=== PATIENT | male | born 1965 | race African-American/Black ===

== ENCOUNTER 2019-07-06 10:53 | Inpatient (IN) | payer OTHER ==
[2019-07-06 11:27] VITALS: BMI 21.8
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
[2019-07-06] MEDS ORDERED: MAGNESIUM HYDROX 2400MG/30ML ORAL SUSPENSION 30 ML CUP PO PRN (14:39)
[2019-07-06] MEDS ORDERED: METHOCARBAMOL 500 MG TABLET PO PRN (14:39)
[2019-07-06] MEDS ORDERED: MENTHOL/PHENOL 1 EACH UD MM PRN (14:39)
[2019-07-06] MEDS ORDERED: hydrOXYzine PAMOATE 25 MG CAPSULE (FP) PO PRN (14:39)
[2019-07-06] MEDS ORDERED: MAG HYDROX/AL HYDROX/SIMETH 30 ML UNIT-DOSE CUP PO PRN (14:39)
[2019-07-06] MEDS ORDERED: NICOTINE POLACRILEX 4 MG GUM BUC PRN (14:39)
[2019-07-06] MEDS ORDERED: MAGNESIUM CITRATE 300 ML BOTTLE PO PRN (14:39)
[2019-07-06] MEDS ORDERED: ACETAMINOPHEN 325 MG TABLET (FP) PO PRN ×2 (14:39)
[2019-07-06] MEDS ORDERED: BISMUTH SUBSALICYLATE 262 MG/15 ML BTL PO PRN (14:39)
[2019-07-06] MEDS ORDERED: IBUPROFEN 400 MG TABLET (FP) PO PRN (14:39)
[2019-07-06] MEDS: diazePAM 5 MG TABLET PO SCH ×2 (16:00→23:10)
[2019-07-06] MEDS: THIAMINE HCL 100 MG TABLET (FP) PO SCH (23:11)
[2019-07-07] MEDS: diazePAM 5 MG TABLET PO PRN ×2 (01:52→16:36)
[2019-07-07] MEDS: diazePAM 5 MG TABLET PO SCH ×3 (06:38→22:08)
[2019-07-07 10:16] LABS: HEMATOCRIT 42.5 % (35.4-49); HEMOGLOBIN 14.1 GM/dL (11.7-16.9); MCH 31.1 pg (25.7-33.7); MCHC 33.2 g/dl (32.0-35.9); MEAN CELL VOLUME 93.6 fl (80-96); MEAN PLT VOLUME 8.6 fl (7.5-11.1); PLATELET COUNT 267 K/MM3 (134-434); RBC 4.55 M/mm3 (4.00-5.60); WHITE BLOOD COUNT 7.5 K/mm3 (4.0-10.0)
[2019-07-07] MEDS ORDERED: cloNIDine HCL 0.1 MG TABLET PO PRN (10:18)
[2019-07-07] MEDS ORDERED: METHADONE HCL 10 MG TABLET (FOR DETOX USE ONLY) PO ONE (10:18)
--- NOTE | 2019-07-07 10:18 | PN ---
[facility] CIWA - CIWA Score Nausea/Vomitin-Mild Nausea/No Vomiting Muscle Tremors: 2 Anxiety: 2 Agitation: 2 Paroxysmal Sweats: No Perspiration Orientation: 0-Oriented Tacttile Disturbances: 1-Very Mild Itch/Numbness Auditory Disturbances: 0-None Visual Disturbances: 0-None Headache: 2-Mild CIWA-Ar Total Score: 10 BHS COWS - Scale Resting Pulse: 1= [place] 81-100 Sweatin= No chills or Flushing Restless Observation: 1= Difficult to Sit Still Pupil Size: 1= Pupils >than Normal Bone or Joint Aches: 1= Mild Discomfort Runny Nose/ Eye Tearin= Nasal Congestion GI Upset > 30mins: 1= Stomach Cramp Tremor Observation of Outstretched Hands: 2= Slight Tremor Visible Yawning Observation: 1= 1-2x During Session Anxiety or Irritability: 2=Irritable/Anxious Goose Flesh Skin: 0=Smooth Skin COWS Score: 11 S Progress Note (SOAP) Subjective: alert,irritable,anxious,interrupted sleep,pain in the body and back,tremor Objective: 07/07/19 10:16 Vital Signs Temperature 98.6 F 07/07/19 09:23 Pulse Rate 93 H 07/07/19 09:23 Respiratory Rate 18 07/07/19 09:23 Blood Pressure 127/93 07/07/19 09:23 O2 Sat by Pulse Oximetry (%) 07/07/19 10:17 labs pending Assessment: 07/07/19 10:17 withdrawal symptom Plan: change detox regimen to methadone and valium regimen
[2019-07-07] MEDS: PRENATAL VITAMINS W/ FOLIC ACID TABLET (FP) PO SCH (10:23)
[2019-07-07] MEDS: cloNIDine HCL 0.1 MG TABLET PO SCH ×2 (10:24→22:08)
[2019-07-07] MEDS: NICOTINE 21 MG/24 HOURS TOPICAL PATCH TD SCH (10:24)
[2019-07-07 10:29] LABS: ALBUMIN 2.9 g/dl (3.4-5.0); BILIRUBIN,TOTAL 0.6 mg/dL (0.2-1); BLOOD UREA NITROGEN 9.1 mg/dL (7-18); CALCIUM 8.9 mg/dL (8.5-10.1); CREATININE 1.1 mg/dL (0.55-1.3); TOT PROT 5.8 g/dl (6.4-8.2)
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
[2019-07-07] MEDS: THIAMINE HCL 100 MG TABLET (FP) PO SCH (22:07)
[2019-07-08] MEDS: diazePAM 5 MG TABLET PO SCH ×2 (05:37→17:16)
[2019-07-08] MEDS ORDERED: METHADONE HCL 5 MG TABLET (FOR DETOX USE ONLY) PO ONE (10:00)
[2019-07-08] MEDS: PRENATAL VITAMINS W/ FOLIC ACID TABLET (FP) PO SCH (10:57)
[2019-07-08] MEDS: cloNIDine HCL 0.1 MG TABLET PO SCH ×2 (10:57→21:46)
--- NOTE | 2019-07-08 10:57 | PN ---
[facility] CIWA - CIWA Score Nausea/Vomitin-No Nausea/No Vomiting Muscle Tremors: 2 Anxiety: 2 Agitation: 2 Paroxysmal Sweats: No Perspiration Orientation: 0-Oriented Tacttile Disturbances: 1-Very Mild Itch/Numbness Auditory Disturbances: 0-None Visual Disturbances: 0-None Headache: 1-Very Mild CIWA-Ar Total Score: 8 BHS COWS - Scale Resting Pulse: 0= [place] 80 or Below Sweatin= No chills or Flushing Restless Observation: 1= Difficult to Sit Still Pupil Size: 1= Pupils >than Normal Bone or Joint Aches: 1= Mild Discomfort Runny Nose/ Eye Tearin= Nasal Congestion GI Upset > 30mins: 1= Stomach Cramp Tremor Observation of Outstretched Hands: 1= Tremor [place], Not Seen Yawning Observation: 1= 1-2x During Session Anxiety or Irritability: 2=Irritable/Anxious Goose Flesh Skin: 0=Smooth Skin COWS Score: 9 [facility] Progress Note (SOAP) Subjective: alert,irritable,anxious,interrupted sleep,pain in the body,poor appetite Objective: 07/08/19 10:55 Vital Signs Temperature 98.2 F 07/08/19 06:13 Pulse Rate 73 07/08/19 06:13 Respiratory Rate 18 07/08/19 06:13 Blood Pressure 107/71 07/08/19 06:13 O2 Sat by Pulse Oximetry (%) 07/08/19 10:56 Laboratory Last Values WBC 7.5 K/mm3 (4.0-10.0) 07/07/19 08:15 RBC 4.55 M/mm3 (4.00-5.60) 07/07/19 08:15 Hgb 14.1 GM/dL (11.7-16.9) 07/07/19 08:15 Hct 42.5 % (35.4-49) 07/07/19 08:15 MCV 93.6 fl (80-96) 07/07/19 08:15 MCH 31.1 pg (25.7-33.7) 07/07/19 08:15 MCHC 33.2 g/dl (32.0-35.9) 07/07/19 08:15 RDW 15.0 % (11.9-15.9) 07/07/19 08:15 Plt Count 267 K/MM3 (134-434) 07/07/19 08:15 MPV 8.6 fl (7.5-11.1) 07/07/19 08:15 Sodium 137 mmol/L (136-145) 07/07/19 08:15 Potassium 4.0 mmol/L (3.5-5.1) 07/07/19 08:15 Chloride 103 mmol/L (98-107) 07/07/19 08:15 Carbon Dioxide 30 mmol/L (21-32) 07/07/19 08:15 Anion Gap 4 MMOL/L (8-16) L 07/07/19 08:15 BUN 9.1 mg/dL (7-18) 07/07/19 08:15 Creatinine 1.1 mg/dL (0.55-1.3) 07/07/19 08:15 Est GFR (CKD-EPI)AfAm 87.13 07/07/19 08:15 Est GFR (CKD-EPI)NonAf 75.17 07/07/19 08:15 Random Glucose 100 mg/dL (74-106) 07/07/19 08:15 Calcium 8.9 mg/dL (8.5-10.1) 07/07/19 08:15 Total Bilirubin 0.6 mg/dL (0.2-1) 07/07/19 08:15 AST 20 U/L (15-37) 07/07/19 08:15 ALT 24 U/L (13-61) 07/07/19 08:15 Alkaline Phosphatase 62 U/L (45-117) 07/07/19 08:15 Total Protein 5.8 g/dl (6.4-8.2) L 07/07/19 08:15 Albumin 2.9 g/dl (3.4-5.0) L 07/07/19 08:15 RPR Titer Nonreactive (NONREACTIVE) 07/07/19 08:15 Assessment: 07/08/19 10:56 withdrawal symptom Plan: continue detox methadone and valium regimen,ensure plus 120 mls po bid
[2019-07-08] MEDS: NICOTINE 21 MG/24 HOURS TOPICAL PATCH TD SCH (11:00)
[2019-07-08] MEDS: THIAMINE HCL 100 MG TABLET (FP) PO SCH (21:45)
[2019-07-08] MEDS: MELATONIN 5 MG TABLETS PO PRN (21:46)
[2019-07-08] MEDS: diazePAM 5 MG TABLET PO PRN (21:48)
[2019-07-09] MEDS ORDERED: diazePAM 5 MG TABLET PO ONE (06:00)
--- NOTE | 2019-07-09 09:53 | PN ---
[facility] CIWA - CIWA Score Nausea/Vomitin-No Nausea/No Vomiting Muscle Tremors: 1-None Visible, but [place] Anxiety: 1-Mildly Anxious Agitation: 1-Slight > Activity Paroxysmal Sweats: 1-Minimal [place] Moist Orientation: 0-Oriented Tacttile Disturbances: 0-None Auditory Disturbances: 0-None Visual Disturbances: 0-None Headache: 0-None Present CIWA-Ar Total Score: 4 BHS COWS - Scale Resting Pulse: 1= [place] 81-100 Sweatin= No chills or Flushing Restless Observation: 0= Sits Still Pupil Size: 0= Normal to Room Light Bone or Joint Aches: 1= Mild Discomfort Runny Nose/ Eye Tearin= None GI Upset > 30mins: 0= None Tremor Observation of Outstretched Hands: 1= Tremor [place], Not Seen Yawning Observation: 1= 1-2x During Session Anxiety or Irritability: 1=Feels Anxious/Irritable Goose Flesh Skin: 0=Smooth Skin COWS Score: 5 [facility] Progress Note (SOAP) Subjective: sweats chills anxiety Objective: 07/09/19 09:53 Vital Signs Temperature 97.9 F 07/09/19 09:32 Pulse Rate 84 07/09/19 09:32 Respiratory Rate 18 07/09/19 09:32 Blood Pressure 115/72 07/09/19 09:32 O2 Sat by Pulse Oximetry (%) aaox3 ambulating no acute distress Assessment: 07/09/19 09:58 mild withdrawals Plan: continue detox d/c in am
[2019-07-09] MEDS ORDERED: METHADONE HCL 10 MG TABLET (FOR DETOX USE ONLY) PO ONE (10:00)
[2019-07-09] MEDS: cloNIDine HCL 0.1 MG TABLET PO SCH ×2 (10:09→22:08)
[2019-07-09] MEDS: PRENATAL VITAMINS W/ FOLIC ACID TABLET (FP) PO SCH (10:09)
[2019-07-09] MEDS: NICOTINE 21 MG/24 HOURS TOPICAL PATCH TD SCH (10:11)
[2019-07-09] MEDS: diazePAM 5 MG TABLET PO PRN (12:23)
[2019-07-09] MEDS: THIAMINE HCL 100 MG TABLET (FP) PO SCH (22:09)
[2019-07-09] MEDS: MELATONIN 5 MG TABLETS PO PRN (22:10)
[2019-07-10] MEDS ORDERED: METHADONE HCL 5 MG TABLET (FOR DETOX USE ONLY) PO ONE (06:00)
[2019-07-10 09:25] VITALS: BP 114/63; PULSE 73; TEMP 97.7
[2019-07-10] MEDS: PRENATAL VITAMINS W/ FOLIC ACID TABLET (FP) PO SCH (10:13)
[2019-07-10] MEDS: NICOTINE 21 MG/24 HOURS TOPICAL PATCH TD SCH (10:13)
[2019-07-10] MEDS: cloNIDine HCL 0.1 MG TABLET PO SCH (10:13)
--- NOTE | 2019-07-10 17:53 | DS ---
[facility] Detox Discharge Summary Admission Date: 07/06/19 Discharge Date: 07/10/19 - History Present History: Alcohol Dependence, Cannabis Dependence, Cocaine Dependence, Opioid Dependence Additional Comments: PATIENT INITIALLY SCHEDULED TO GO TO [facility] [place] FOR AFTERCARE. HOWEVER, PATIENT CHANGED HIS MIND AT LAST MINUTE AND ELECTED TO LEAVE. PATIENT ADVISED TO CONSIDER LOCAL 12-STEP / NA / AA OUTPATIENT SUPPORT GROUP PROGRAMS FOR AFTERCARE. PATIENT VERBALIZED UNDERSTANDING OF RECOMMENDATION. PATIENT WAS DISCHARGED FROM DETOX UNIT IN STABLE MEDICAL CONDITION. Pertinent Past History: Nicotine Dependence, Schizoaffective Disorder, Bipolar Disorder. - Physical Exam Results Vital Signs: Vital Signs Temperature 97.7 F 07/10/19 09:24 Pulse Rate 73 07/10/19 09:24 Respiratory Rate 16 07/10/19 09:24 Blood Pressure 114/63 07/10/19 09:24 O2 Sat by Pulse Oximetry (%) Pertinent Admission Physical Exam Findings: WITHDRAWAL SYMPTOMS. Laboratory Tests 07/07/19 07/07/19 07/07/19 08:15 08:15 08:15 WBC 7.5 RBC 4.55 Hgb 14.1 Hct 42.5 MCV 93.6 MCH 31.1 MCHC 33.2 RDW 15.0 Plt Count 267 MPV 8.6 Sodium 137 Potassium 4.0 Chloride 103 Carbon Dioxide 30 Anion Gap 4 L BUN 9.1 Creatinine 1.1 Est GFR (CKD-EPI)AfAm 87.13 Est GFR (CKD-EPI)NonAf 75.17 Random Glucose 100 Calcium 8.9 Total Bilirubin 0.6 AST 20 ALT 24 Alkaline Phosphatase 62 Total Protein 5.8 L Albumin 2.9 L RPR Titer Nonreactive LABS NOTED. - Treatment Hospital Course: Detox Protocol Followed, Detoxed Safely, Responded well, Discharged Condition Good Patient has Accepted a Rehab Referral to: PT. ADVISED TO CONSIDER [id number]/ NA/AA OUTPATIENT SUPPORT GROUPS. - Medication Discharge Medications: Ambulatory Orders NK [No Known Home Medication] 07/06/19 - Diagnosis (1) Cocaine dependence Status: Acute Qualifiers: Substance use status: in withdrawal Qualified Code(s): F14.23 - Cocaine dependence with withdrawal (2) Sedative, hypnotic or anxiolytic abuse Status: Acute (3) Substance induced mood disorder Status: Acute (4) Uncomplicated alcohol dependence Status: Acute (5) Uncomplicated opioid dependence Status: Acute (6) Bipolar disorder Status: Chronic Qualifiers: Active/Remission status: remission status unspecified Qualified Code(s): F31.9 - Bipolar disorder, unspecified (7) Nicotine dependence Status: Chronic Qualifiers: Nicotine product type: cigarettes Substance use status: uncomplicated Qualified Code(s): F17.210 - Nicotine dependence, cigarettes, uncomplicated (8) Schizoaffective disorder Status: Ruled-out Qualifiers: Schizoaffective disorder type: unspecified Qualified Code(s): F25.9 - Schizoaffective disorder, unspecified - AMA Did Patient Leave Against Medical Advice: No
== END 2019-07-10 10:47 | disposition home or self-care (01) | DRG 773 ==
LOC: YASAS 10:53 → Y6N 15:21
PROVIDERS: ADMIT Allergy & Immunology; ATTEND Allergy & Immunology
PROC: HZ2ZZZZ Detoxification Services for Substance Abuse Treatment (ICD-10-PCS; principal; 2019-07-06)
DX: F10.230 Alcohol dependence with withdrawal, uncomplicated (principal); F11.23 Opioid dependence with withdrawal; F13.20 Sedative, hypnotic or anxiolytic dependence, uncomplicated; F14.20 Cocaine dependence, uncomplicated; F12.20 Cannabis dependence, uncomplicated; F17.210 Nicotine dependence, cigarettes, uncomplicated; F31.9 Bipolar disorder, unspecified; F19.24 Other psychoactive substance dependence with psychoactive substance-induced mood disorder; F41.8 Other specified anxiety disorders; Z59.0 Homelessness
CPT/HCPCS: 36415; 80053; 85027; 86593; J0735

== ENCOUNTER 2019-07-25 10:56 | Inpatient (IN) | payer OTHER ==
[2019-07-25 12:12] VITALS: BMI 21.4
--- NOTE | 2019-07-25 12:35 | HP ---
COWS - Scale Resting Pulse: 1= NE 81-100 Sweatin= Chills/Flushing Restless Observation: 1= Difficult to Sit Still Pupil Size: 1= Pupils >than Normal Bone or Joint Aches: 2= Severe Diffuse Aches Runny Nose/ Eye Tearin= Nasal Congestion GI Upset > 30mins: 2= Nausea/Diarrhea Tremor Observation: 2= Slight Tremor Visible Yawning Observation: 2= >3x During Session Anxiety or Irritability: 2=Irritable/Anxious Goose Flesh Skin: 0=Smooth Skin COWS Score: 15 CIWA Score Nausea/Vomitin Muscle Tremors: 2 Anxiety: 3 Agitation: 3 Paroxysmal Sweats: 1-Minimal Palms Moist Orientation: 0-Oriented Tacttile Disturbances: 1-Very Mild Itch/Numbness Auditory Disturbances: 0-None Visual Disturbances: 0-None Headache: 2-Mild CIWA-Ar Total Score: 14 - Admission Criteria OASAS Guidelines: Admission for Medically Managed Detox: Requires at least one of the followin. CIWA greater than 12 2. Seizures within the past 24 hours 3. Delirium tremens within the past 24 hours 4. Hallucinations within the past 24 hours 5. Acute intervention needed for co occurring medical disorder 6. Acute intervention needed for co occurring psychiatric disorder 7. Severe withdrawal that cannot be handled at a lower level of care (continued vomiting, continued diarrhea, abnormal vital signs) requiring intravenous medication and/or fluids 8. Admitting History and Physical - Admission Chief Complaint: i need help to stop using heroin,alcohol,cocaine and xanax History of Present Illness: this 54 years old male with heroin,cocaine,alcohol and xanax dependence,seeking help to stop, seen in [facility] last night, multiple admissions in detox but keep relapsing,last 07/06/19 to 07/10/19 denied seizure denied syncope weight loss nicotine dependence could not find paper from [facility],stated did not receive any treatment longest sobriety 2 years plan for rehab after detox anxiety and depression,last medicated 2 months ago History Source: Patient Limitations to Obtaining History: No Limitations - Past Medical History Psych: Yes: Anxiety, Depression, Other - Past Surgical History Past Surgical History: Yes: None (right hip surgery in 1998) - Smoking History Smoking history: Current every day smoker Have you smoked in the past 12 months: Yes Aproximately how many cigarettes per day: 20 - Alcohol/Substance Use Hx Alcohol Use: Yes History of Substance Use: reports: Cocaine, Heroin, Tranquilizers - Social History Usual Living Arrangement: Yes: Other (homeless) ADL: Support Services Occupation: unemployed History of Recent Travel: No Admission ROS [facility] - [facility] Chief Complaint: i need help to stop using heroin,alcohol,cocaine and marijuana and xanax Allergies/Adverse Reactions: Allergies Allergy/AdvReac Type Severity Reaction Status Date / Time pork derived (porcine) Allergy Mild Verified 07/25/19 13:49 No Known Drug Allergies Allergy Verified 07/25/19 13:50 History of Present Illness: this 54 years old male with heroin,alcohol,cocaine,marijuana and xanax dependence seeking inpatient detox Exam Limitations: No Limitations - Ebola screening Have you traveled outside of the country in the last 21 days: No Have you had contact with anyone from an Ebola affected area: No Do you have a fever: No - Review of Systems Constitutional: Chills, Loss of Appetite, Night Sweats, Weakness, Weight Stable , Unintentional Wgt. Loss EENT: reports: Tearing, Nose Congestion Respiratory: reports: No Symptoms reported Cardiac: reports: No Symptoms Reported GI: reports: No Symptoms Reported : reports: No Symptoms Reported Musculoskeletal: reports: Back Pain, Joint Pain, Muscle Pain Integumentary: reports: Dryness Neuro: reports: Headache, Tremors Endocrine: reports: No Symptoms Reported Hematology: reports: No Symptoms Reported Psychiatric: reports: No Sypmtoms Reported, Judgement Intact, Mood/Affect Appropiate, Orientated x3, Anxious, Depressed Other Systems: Reviewed and Negative Patient History - Patient Medical History Hx Asthma: No Hx Chronic Obstructive Pulmonary Disease (COPD): No Hx Cancer: No Hx Cardiac Disorders: No Hx Congestive Heart Failure: No Hx Hypertension: No Hx Hypercholesterolemia: No Hx Pacemaker: No HX Cerebrovascular Accident: No Hx Seizures: No Hx Dementia: No Hx Diabetes: No Hx Gastrointestinal Disorders: No Hx Liver Disease: No Hx Genitourinary Disorders: No Hx Sexually Transmitted Disorders: No Hx Renal Disease (ESRD): No Hx Thyroid Disease: No Hx Human Immunodeficiency Virus (HIV): No (07/06 negative) Hx Hepatitis C: No Hx Depression: Yes Hx Suicide Attempt: No Hx Bipolar Disorder: No Hx Schizophrenia: No Other Medical History: anxiety,depression,no sicidal,no homicidal - Patient Surgical History Past Surgical History: Yes Hx Neurologic Surgery: No Hx Cataract Extraction: No Hx Cardiac Surgery: No Hx Lung Surgery: No Hx Breast Surgery: No Hx Breast Biopsy: No Hx Abdominal Surgery: No Hx Appendectomy: No Hx Cholecystectomy: No Hx Genitourinary Surgery: No Hx Section: No Hx Orthopedic Surgery: Yes (RIGHT HIP SURGERY 1998) Anesthesia Reaction: No - PPD History Previous Implant?: Yes Implanted On Prior [facility] Admission?: Yes Date: 07/08/19 Results: 0 mm PPD to be Administered?: No - Smoking Cessation Smoking history: Current every day smoker Have you smoked in the past 12 months: Yes Aproximately how many cigarettes per day: 20 Cigars Per Day: 0 Hx Chewing Tobacco Use: No Initiated information on smoking cessation: Yes 'Breaking Loose' booklet given: 07/25/19 - Substance & Tx. History Hx Alcohol Use: Yes Hx Substance Use: Yes Substance Use Type: Alcohol, Cocaine, Heroin, Marijuana, Tranquilizers Hx Substance Use Treatment: Yes ([facility] 07/06/19 to 07/10/19) - Substances abused Alcohol Substance route: Oral Frequency: Daily Amount used: 1 pint of vodka Age of first use: 25 Date of last use: 07/24/19 Heroin Substance route: Inhalation Frequency: Daily Amount used: 1 BUNDLE Age of first use: 39 Date of last use: 07/24/19 Other Other (specify): PERCOCET Substance route: Oral Frequency: 1-2 times per week Amount used: 1 PILL Age of first use: 52 Date of last use: 06/29/19 Cocaine Substance route: Smoking Frequency: Daily Amount used: $50 Age of first use: 29 Date of last use: 07/24/19 Alprazolam (Xanax) Substance route: Inhalation Frequency: Daily Amount used: 1-2 pills Age of first use: 51 Date of last use: 07/24/19 Marijuana/Hashish Substance route: Smoking Frequency: 1-2 times per week Amount used: 5$ Age of first use: 25 Date of last use: 07/23/19 Admission Physical Exam BHS - Vital Signs Vital Signs: Vital Signs - 24 hr 07/25/19 11:54 Temperature 96.8 F L Pulse Rate 81 Respiratory 20 Rate Blood Pressure 134/86 - Physical General Appearance: Yes: Moderate Distress, Tremorous, Irritable, Sweating, Anxious HEENTM: Yes: SAI, Nasal Congestion Neck: Yes: Within Normal Limits, Supple, Trachea in good position Breast: Yes: Within Normal Limits Cardiology: Yes: Within Normal Limits, Regular Rhythm, Regular Rate, S1, S2 Abdominal: Yes: Within Normal Limits, Normal Bowel Sounds, Non Tender, Flat, Soft Genitourinary: Yes: Within Normal Limits Back: Yes: Muscle Spasm Musculoskeletal: Yes: Back pain, Joint Stiffness, Muscle Pain Extremities: Yes: Normal Range of Motion, Tremors Neurological: Yes: facility administrator II-XII NML intact, Fully Oriented, Alert, Motor Strength 5/5 Integumentary: Yes: Dry Lymphatic: Yes: Within Normal Limits - Diagnostic (1) Opioid dependence with withdrawal Current Visit: Yes Status: Acute (2) Cocaine dependence Current Visit: No Status: Acute Qualifiers: Substance use status: in withdrawal Qualified Code(s): F14.23 - Cocaine dependence with withdrawal (3) Sedative, hypnotic or anxiolytic abuse Current Visit: No Status: Acute (4) Alcohol dependence with uncomplicated withdrawal Current Visit: Yes Status: Acute (5) Nicotine dependence Current Visit: No Status: Chronic Qualifiers: Nicotine product type: cigarettes Substance use status: uncomplicated Qualified Code(s): F17.210 - Nicotine dependence, cigarettes, uncomplicated (6) Insomnia secondary to depression with anxiety Current Visit: Yes Status: Acute Cleared for Admission [facility] - Detox or Rehab [facility] Level of Care: Medically Managed (and ativan regimen) Detox Regimen/Protocol: Methadone (and ativan) Breathalyzer - Breathalyzer Breathalyzer: 0 Urine Drug Screen - Test Device Lot number: [id number] Expiration date: 03/17/21 - Control Is test valid?: Yes - Results Drug screen NEGATIVE: No Urine drug screen results: JANIYA-Cocaine, MOP-Opiates, BUP-Suboxone Inpatient Rehab Admission - Rehab Decision to Admit Inpatient rehab admission?: No
[2019-07-25] MEDS ORDERED: MAGNESIUM CITRATE 300 ML BOTTLE PO PRN (12:53)
[2019-07-25] MEDS ORDERED: cloNIDine HCL 0.1 MG TABLET PO PRN (12:53)
[2019-07-25] MEDS ORDERED: ACETAMINOPHEN 325 MG TABLET (FP) PO PRN ×2 (12:53)
[2019-07-25] MEDS ORDERED: MAGNESIUM HYDROX 2400MG/30ML ORAL SUSPENSION 30 ML CUP PO PRN (12:53)
[2019-07-25] MEDS ORDERED: MAG HYDROX/AL HYDROX/SIMETH 30 ML UNIT-DOSE CUP PO PRN (12:53)
[2019-07-25] MEDS ORDERED: MELATONIN 5 MG TABLETS PO PRN (12:53)
[2019-07-25] MEDS ORDERED: NICOTINE POLACRILEX 2 MG GUM BUC PRN (12:53)
[2019-07-25] MEDS ORDERED: LORazepam 1 MG TABLET PO PRN (12:53)
[2019-07-25] MEDS ORDERED: MENTHOL/PHENOL 1 EACH UD MM PRN (12:53)
[2019-07-25] MEDS ORDERED: METHADONE HCL 10 MG TABLET (FOR DETOX USE ONLY) PO ONE (12:53)
[2019-07-25] MEDS: NICOTINE 21 MG/24 HOURS TOPICAL PATCH TD SCH (14:28)
[2019-07-25] MEDS: LORazepam 2 MG TABLET PO SCH ×2 (18:07→22:21)
[2019-07-25] MEDS: THIAMINE HCL 100 MG TABLET (FP) PO SCH (22:21)
[2019-07-26] MEDS: LORazepam 2 MG TABLET PO SCH ×4 (06:22→22:15)
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
[2019-07-26] MEDS ORDERED: METHADONE (DETOX) 20 MG, METHADONE (DETOX) 5 MG PO ONE (10:00)
[2019-07-26] MEDS ORDERED: METHADONE HCL 5 MG TABLET (FOR DETOX USE ONLY) ONE (10:02)
[2019-07-26] MEDS ORDERED: METHADONE HCL 10 MG TABLET (FOR DETOX USE ONLY) ONE (10:03)
[2019-07-26] MEDS: NICOTINE 21 MG/24 HOURS TOPICAL PATCH TD SCH (10:51)
[2019-07-26] MEDS: PRENATAL VITAMINS W/ FOLIC ACID TABLET (FP) PO SCH (10:51)
[2019-07-26 11:02] LABS: HEMATOCRIT 38.8 % (35.4-49); HEMOGLOBIN 12.9 GM/dL (11.7-16.9); MCH 30.8 pg (25.7-33.7); MCHC 33.4 g/dl (32.0-35.9); MEAN CELL VOLUME 92.3 fl (80-96); MEAN PLT VOLUME 8.1 fl (7.5-11.1); PLATELET COUNT 256 K/MM3 (134-434); RDW 15.2 % (11.9-15.9); WHITE BLOOD COUNT 6.7 K/mm3 (4.0-10.0)
--- NOTE | 2019-07-26 11:02 | PN ---
S CIWA - CIWA Score Nausea/Vomitin-Mild Nausea/No Vomiting Muscle Tremors: 3 Anxiety: 2 Agitation: 2 Paroxysmal Sweats: 1-Minimal Palms Moist Orientation: 0-Oriented Tacttile Disturbances: 1-Very Mild Itch/Numbness Auditory Disturbances: 0-None Visual Disturbances: 0-None Headache: 1-Very Mild CIWA-Ar Total Score: 11 BHS COWS - Scale Resting Pulse: 1= [place] 81-100 Sweatin= No chills or Flushing Restless Observation: 1= Difficult to Sit Still Pupil Size: 1= Pupils >than Normal Bone or Joint Aches: 1= Mild Discomfort Runny Nose/ Eye Tearin= Nasal Congestion GI Upset > 30mins: 2= Nausea/Diarrhea Tremor Observation of Outstretched Hands: 2= Slight Tremor Visible Yawning Observation: 1= 1-2x During Session Anxiety or Irritability: 2=Irritable/Anxious Goose Flesh Skin: 0=Smooth Skin COWS Score: 12 S Progress Note (SOAP) Subjective: alert,irritable,anxious,interrupted sleep,pain in the body and back Objective: 07/26/19 10:56 Vital Signs Temperature 98.8 F 07/26/19 08:17 Pulse Rate 78 07/26/19 08:17 Respiratory Rate 18 07/26/19 08:17 Blood Pressure 136/84 07/26/19 08:17 O2 Sat by Pulse Oximetry (%) 07/26/19 11:06 labs pending Assessment: 07/26/19 11:07 withdrawal symptom Plan: continue detox methadone and ativan regimen
[2019-07-26 11:20] LABS: ALBUMIN 2.6 g/dl (3.4-5.0); BILIRUBIN,TOTAL 0.4 mg/dL (0.2-1); CALCIUM 8.5 mg/dL (8.5-10.1); CREATININE 1.1 mg/dL (0.55-1.3); POTASSIUM 3.4 mmol/L (3.5-5.1); TOT PROT 5.4 g/dl (6.4-8.2)
[2019-07-26] MEDS: THIAMINE HCL 100 MG TABLET (FP) PO SCH (22:15)
[2019-07-27] MEDS: BISMUTH SUBSALICYLATE 524 MG/30 ML UD PO PRN ×2 (04:31→06:35)
[2019-07-27] MEDS: LORazepam 1 MG TABLET PO SCH ×4 (06:34→22:00)
--- NOTE | 2019-07-27 09:50 | PN ---
[facility] CIWA - CIWA Score Nausea/Vomitin-Mild Nausea/No Vomiting Muscle Tremors: 1-None Visible, but [place] Anxiety: 2 Agitation: 2 Paroxysmal Sweats: No Perspiration Orientation: 0-Oriented Tacttile Disturbances: 1-Very Mild Itch/Numbness Auditory Disturbances: 0-None Visual Disturbances: 0-None Headache: 1-Very Mild CIWA-Ar Total Score: 8 S COWS - Scale Resting Pulse: 1= [place] 81-100 Sweatin= No chills or Flushing Restless Observation: 1= Difficult to Sit Still Pupil Size: 1= Pupils >than Normal Bone or Joint Aches: 1= Mild Discomfort Runny Nose/ Eye Tearin= Nasal Congestion GI Upset > 30mins: 1= Stomach Cramp Tremor Observation of Outstretched Hands: 1= Tremor [place], Not Seen Yawning Observation: 1= 1-2x During Session Anxiety or Irritability: 2=Irritable/Anxious Goose Flesh Skin: 0=Smooth Skin COWS Score: 10 [facility] Progress Note (SOAP) Subjective: alert,irritable,anxious,interrupted sleep,pain in the body Objective: 07/27/19 09:48 Vital Signs Temperature 100.8 F H 07/27/19 09:13 Pulse Rate 90 07/27/19 09:13 Respiratory Rate 18 07/27/19 09:13 Blood Pressure 135/88 07/27/19 09:13 O2 Sat by Pulse Oximetry (%) Laboratory Last Values WBC 6.7 K/mm3 (4.0-10.0) 07/26/19 07:50 RBC 4.20 M/mm3 (4.00-5.60) 07/26/19 07:50 Hgb 12.9 GM/dL (11.7-16.9) 07/26/19 07:50 Hct 38.8 % (35.4-49) 07/26/19 07:50 MCV 92.3 fl (80-96) 07/26/19 07:50 MCH 30.8 pg (25.7-33.7) 07/26/19 07:50 MCHC 33.4 g/dl (32.0-35.9) 07/26/19 07:50 RDW 15.2 % (11.9-15.9) 07/26/19 07:50 Plt Count 256 K/MM3 (134-434) 07/26/19 07:50 MPV 8.1 fl (7.5-11.1) 07/26/19 07:50 Sodium 142 mmol/L (136-145) 07/26/19 07:50 Potassium 3.4 mmol/L (3.5-5.1) L 07/26/19 07:50 Chloride 105 mmol/L (98-107) 07/26/19 07:50 Carbon Dioxide 31 mmol/L (21-32) 07/26/19 07:50 Anion Gap 7 MMOL/L (8-16) L 07/26/19 07:50 BUN 9.0 mg/dL (7-18) 07/26/19 07:50 Creatinine 1.1 mg/dL (0.55-1.3) 07/26/19 07:50 Est GFR (CKD-EPI)AfAm 87.13 07/26/19 07:50 Est GFR (CKD-EPI)NonAf 75.17 07/26/19 07:50 Random Glucose 118 mg/dL (74-106) H 07/26/19 07:50 Calcium 8.5 mg/dL (8.5-10.1) 07/26/19 07:50 Total Bilirubin 0.4 mg/dL (0.2-1) 07/26/19 07:50 AST 25 U/L (15-37) 07/26/19 07:50 ALT 26 U/L (13-61) 07/26/19 07:50 Alkaline Phosphatase 75 U/L (45-117) 07/26/19 07:50 Total Protein 5.4 g/dl (6.4-8.2) L 07/26/19 07:50 Albumin 2.6 g/dl (3.4-5.0) L 07/26/19 07:50 RPR Titer Nonreactive (NONREACTIVE) 07/26/19 07:50 Assessment: 07/27/19 09:49 withdrawal symptom Plan: continue detox methadone and ativan regimen
[2019-07-27] MEDS ORDERED: METHADONE HCL 10 MG TABLET (FOR DETOX USE ONLY) PO ONE (10:00)
[2019-07-27] MEDS: PRENATAL VITAMINS W/ FOLIC ACID TABLET (FP) PO SCH (10:23)
[2019-07-27] MEDS: IBUPROFEN 400 MG TABLET (FP) PO PRN (11:45)
[2019-07-27] MEDS: METHOCARBAMOL 500 MG TABLET PO PRN (11:48)
[2019-07-27] MEDS: LIDOCAINE 5% TOPICAL PATCH TP SCH (12:00)
[2019-07-27] MEDS: NICOTINE 21 MG/24 HOURS TOPICAL PATCH TD SCH (12:20)
[2019-07-27] MEDS: hydrOXYzine PAMOATE 25 MG CAPSULE (FP) PO PRN ×2 (14:54→19:13)
[2019-07-27] MEDS: MELATONIN 5 MG TABLETS PO PRN (22:00)
[2019-07-27] MEDS: THIAMINE HCL 100 MG TABLET (FP) PO SCH (22:00)
[2019-07-27] MEDS: LIDOCAINE PATCH REMOVAL MC SCH (22:00)
[2019-07-28] MEDS ORDERED: LORazepam 0.5 MG TABLET PO PRN
[2019-07-28] MEDS: LORazepam 0.5 MG TABLET PO SCH ×4 (06:00→22:18)
[2019-07-28] MEDS: METHOCARBAMOL 500 MG TABLET PO PRN ×2 (06:02→17:25)
[2019-07-28] MEDS ORDERED: METHADONE HCL 5 MG TABLET (FOR DETOX USE ONLY) ONE (09:31)
[2019-07-28] MEDS ORDERED: METHADONE HCL 10 MG TABLET (FOR DETOX USE ONLY) ONE (09:31)
--- NOTE | 2019-07-28 09:55 | PN ---
[facility] CIWA - CIWA Score Nausea/Vomitin-Mild Nausea/No Vomiting Muscle Tremors: 1-None Visible, but [place] Anxiety: 2 Agitation: 2 Paroxysmal Sweats: No Perspiration Orientation: 0-Oriented Tacttile Disturbances: 1-Very Mild Itch/Numbness Auditory Disturbances: 0-None Visual Disturbances: 0-None Headache: 1-Very Mild CIWA-Ar Total Score: 8 BHS COWS - Scale Resting Pulse: 1= [place] 81-100 Sweatin= No chills or Flushing Restless Observation: 1= Difficult to Sit Still Pupil Size: 1= Pupils >than Normal Bone or Joint Aches: 1= Mild Discomfort Runny Nose/ Eye Tearin= Nasal Congestion GI Upset > 30mins: 1= Stomach Cramp Tremor Observation of Outstretched Hands: 2= Slight Tremor Visible Yawning Observation: 1= 1-2x During Session Anxiety or Irritability: 2=Irritable/Anxious Goose Flesh Skin: 0=Smooth Skin COWS Score: 11 S Progress Note (SOAP) Subjective: alert,irritable,anxious,interrupted sleep,pain in the body and back Objective: 07/28/19 09:54 Vital Signs Temperature 99.0 F 07/28/19 09:22 Pulse Rate 82 07/28/19 09:22 Respiratory Rate 18 07/28/19 09:22 Blood Pressure 130/87 07/28/19 09:22 O2 Sat by Pulse Oximetry (%) Assessment: 07/28/19 09:54 withdrawal symptom Plan: continue detox methadone and ativan regimen
[2019-07-28] MEDS ORDERED: METHADONE (DETOX) 10 MG, METHADONE (DETOX) 5 MG PO ONE (10:00)
[2019-07-28] MEDS: LIDOCAINE 5% TOPICAL PATCH TP SCH (10:29)
[2019-07-28] MEDS: NICOTINE 21 MG/24 HOURS TOPICAL PATCH TD SCH (10:29)
[2019-07-28] MEDS: PRENATAL VITAMINS W/ FOLIC ACID TABLET (FP) PO SCH (10:29)
[2019-07-28] MEDS: IBUPROFEN 400 MG TABLET (FP) PO PRN (19:57)
[2019-07-28] MEDS: LIDOCAINE PATCH REMOVAL MC SCH (22:15)
[2019-07-28] MEDS: MELATONIN 5 MG TABLETS PO PRN (22:18)
[2019-07-28] MEDS: THIAMINE HCL 100 MG TABLET (FP) PO SCH (22:18)
[2019-07-29] MEDS ORDERED: LORazepam 0.5 MG TABLET PO ONE (05:00)
[2019-07-29] MEDS ORDERED: METHADONE HCL 10 MG TABLET (FOR DETOX USE ONLY) PO ONE (10:00)
--- NOTE | 2019-07-29 10:23 | PN ---
[facility] CIWA - CIWA Score Nausea/Vomitin-Mild Nausea/No Vomiting Muscle Tremors: 2 Anxiety: 2 Agitation: 2 Paroxysmal Sweats: No Perspiration Orientation: 0-Oriented Tacttile Disturbances: 0-None Auditory Disturbances: 0-None Visual Disturbances: 0-None Headache: 1-Very Mild CIWA-Ar Total Score: 8 BHS COWS - Scale Resting Pulse: 1= [place] 81-100 Sweatin= No chills or Flushing Restless Observation: 1= Difficult to Sit Still Pupil Size: 1= Pupils >than Normal Bone or Joint Aches: 1= Mild Discomfort Runny Nose/ Eye Tearin= Nasal Congestion GI Upset > 30mins: 1= Stomach Cramp Tremor Observation of Outstretched Hands: 1= Tremor [place], Not Seen Yawning Observation: 1= 1-2x During Session Anxiety or Irritability: 2=Irritable/Anxious Goose Flesh Skin: 0=Smooth Skin COWS Score: 10 S Progress Note (SOAP) Subjective: alert,irritable,anxious,interrupted sleep,pain in the body and back Objective: 07/29/19 10:22 Vital Signs Temperature 97.7 F 07/29/19 09:28 Pulse Rate 86 07/29/19 09:28 Respiratory Rate 16 07/29/19 09:28 Blood Pressure 137/97 07/29/19 09:28 O2 Sat by Pulse Oximetry (%) Assessment: 07/29/19 10:22 withdrawal symptom Plan: continue detox methadone and ativan regimen,discharge in am
[2019-07-29] MEDS: PRENATAL VITAMINS W/ FOLIC ACID TABLET (FP) PO SCH (10:33)
[2019-07-29] MEDS: LIDOCAINE 5% TOPICAL PATCH TP SCH (10:34)
[2019-07-29] MEDS: NICOTINE 21 MG/24 HOURS TOPICAL PATCH TD SCH (10:34)
[2019-07-29] MEDS: METHOCARBAMOL 500 MG TABLET PO PRN ×2 (12:35→20:10)
[2019-07-29] MEDS: IBUPROFEN 400 MG TABLET (FP) PO PRN (20:10)
[2019-07-29] MEDS: MELATONIN 5 MG TABLETS PO PRN (22:07)
[2019-07-29] MEDS: LIDOCAINE PATCH REMOVAL MC SCH (22:07)
[2019-07-29] MEDS: THIAMINE HCL 100 MG TABLET (FP) PO SCH (22:08)
[2019-07-30] MEDS ORDERED: METHADONE HCL 5 MG TABLET (FOR DETOX USE ONLY) PO ONE (06:00)
--- NOTE | 2019-07-30 08:55 | DS ---
[facility] Detox Discharge Summary Admission Date: 07/25/19 Discharge Date: 07/30/19 - History Present History: Alcohol Dependence, Cocaine Dependence, Opioid Dependence, Sedative Dependence - Physical Exam Results Vital Signs: Vital Signs Temperature 98.1 F 07/30/19 06:51 Pulse Rate 75 07/30/19 06:51 Respiratory Rate 18 07/30/19 06:51 Blood Pressure 121/82 07/30/19 06:51 O2 Sat by Pulse Oximetry (%) Pertinent Admission Physical Exam Findings: Vital Signs Temperature 98.1 F 07/30/19 06:51 Pulse Rate 75 07/30/19 06:51 Respiratory Rate 18 07/30/19 06:51 Blood Pressure 121/82 07/30/19 06:51 O2 Sat by Pulse Oximetry (%) Laboratory Tests 07/26/19 07/26/19 07/26/19 07:50 07:50 07:50 WBC 6.7 RBC 4.20 Hgb 12.9 Hct 38.8 MCV 92.3 MCH 30.8 MCHC 33.4 RDW 15.2 Plt Count 256 MPV 8.1 Sodium 142 Potassium 3.4 L Chloride 105 Carbon Dioxide 31 Anion Gap 7 L BUN 9.0 Creatinine 1.1 Est GFR (CKD-EPI)AfAm 87.13 Est GFR (CKD-EPI)NonAf 75.17 Random Glucose 118 H Calcium 8.5 Total Bilirubin 0.4 AST 25 ALT 26 Alkaline Phosphatase 75 Total Protein 5.4 L Albumin 2.6 L RPR Titer Nonreactive labs noted aaox3 ambulating no acute distress - Treatment Hospital Course: Detox Protocol Followed, Detoxed Safely, Responded well, Discharged Condition Good, Rehab Referral Accepted Patient has Accepted a Rehab Referral to: referred to [facility] - Medication Discharge Medications: Ambulatory Orders NK [No Known Home Medication] 07/06/19 - Diagnosis (1) Alcohol dependence with uncomplicated withdrawal Current Visit: Yes Status: Acute (2) Insomnia secondary to depression with anxiety Current Visit: Yes Status: Acute (3) Opioid dependence with withdrawal Current Visit: Yes Status: Acute (4) Alcohol withdrawal Current Visit: No Status: Acute (5) Cocaine dependence Current Visit: No Status: Acute Qualifiers: Substance use status: in withdrawal Qualified Code(s): F14.23 - Cocaine dependence with withdrawal (6) Opioid withdrawal Current Visit: No Status: Acute (7) Sedative, hypnotic or anxiolytic abuse Current Visit: No Status: Acute (8) Substance induced mood disorder Current Visit: No Status: Acute (9) Uncomplicated alcohol dependence Current Visit: No Status: Acute (10) Uncomplicated opioid dependence Current Visit: No Status: Acute (11) Bipolar disorder Current Visit: No Status: Chronic Qualifiers: Active/Remission status: remission status unspecified Qualified Code(s): F31.9 - Bipolar disorder, unspecified (12) Nicotine dependence Current Visit: No Status: Chronic Qualifiers: Nicotine product type: cigarettes Substance use status: uncomplicated Qualified Code(s): F17.210 - Nicotine dependence, cigarettes, uncomplicated (13) Schizoaffective disorder Current Visit: No Status: Ruled-out Qualifiers: Schizoaffective disorder type: unspecified Qualified Code(s): F25.9 - Schizoaffective disorder, unspecified - AMA Did Patient Leave Against Medical Advice: No
[2019-07-30] MEDS: PRENATAL VITAMINS W/ FOLIC ACID TABLET (FP) PO SCH (09:17)
[2019-07-30] MEDS: LIDOCAINE 5% TOPICAL PATCH TP SCH (09:17)
[2019-07-30] MEDS: IBUPROFEN 400 MG TABLET (FP) PO PRN (09:17)
[2019-07-30] MEDS: NICOTINE 21 MG/24 HOURS TOPICAL PATCH TD SCH (09:18)
[2019-07-30 10:17] VITALS: BP 125/71; PULSE 94; TEMP 98.8
== END 2019-07-30 10:10 | disposition home or self-care (01) | DRG 773 ==
LOC: YASAS 10:56 → Y6N 12:44
PROVIDERS: ADMIT Allergy & Immunology; ATTEND Allergy & Immunology
PROC: HZ2ZZZZ Detoxification Services for Substance Abuse Treatment (ICD-10-PCS; principal; 2019-07-25)
DX: F11.23 Opioid dependence with withdrawal (principal); F10.230 Alcohol dependence with withdrawal, uncomplicated; F13.230 Sedative, hypnotic or anxiolytic dependence with withdrawal, uncomplicated; F14.20 Cocaine dependence, uncomplicated; F17.210 Nicotine dependence, cigarettes, uncomplicated; F51.05 Insomnia due to other mental disorder; F19.24 Other psychoactive substance dependence with psychoactive substance-induced mood disorder; F31.9 Bipolar disorder, unspecified; F25.9 Schizoaffective disorder, unspecified; Z91.018 Allergy to other foods
CPT/HCPCS: 36415; 80053; 85027; 86593

== ENCOUNTER 2020-09-15 12:56 | Inpatient (IN) | payer OTHER ==
[2020-09-15 16:08] VITALS: BMI 25.2
[2020-09-15] MEDS ORDERED: BISMUTH SUBSALICYLATE 524 MG/30 ML UD PO PRN (17:05)
[2020-09-15] MEDS ORDERED: ONDANSETRON *ODT* 4 MG TABLET SL PRN (17:05)
[2020-09-15] MEDS ORDERED: MAGNESIUM CITRATE 300 ML BOTTLE PO PRN (17:05)
[2020-09-15] MEDS ORDERED: ACETAMINOPHEN 325 MG TABLET (FP) PO PRN ×2 (17:05)
[2020-09-15] MEDS ORDERED: cloNIDine HCL 0.1 MG TABLET PO PRN (17:05)
[2020-09-15] MEDS ORDERED: NICOTINE POLACRILEX 2 MG GUM BUC PRN (17:05)
[2020-09-15] MEDS ORDERED: MAG HYDROX/AL HYDROX/SIMETH 30 ML UNIT-DOSE CUP PO PRN (17:05)
[2020-09-15] MEDS ORDERED: METHADONE HCL 10 MG TABLET (FOR DETOX USE ONLY) PO ONE (17:05)
[2020-09-15] MEDS ORDERED: MENTHOL/PHENOL 1 EACH UD MM PRN (17:05)
[2020-09-15] MEDS ORDERED: MAGNESIUM HYDROX 2400MG/30ML ORAL SUSPENSION 30 ML CUP PO PRN (17:05)
[2020-09-15] MEDS: THIAMINE HCL 100 MG TABLET (FP) PO SCH (22:39)
[2020-09-15] MEDS: MELATONIN 5 MG TABLETS PO SCH (22:39)
[2020-09-16] MEDS ORDERED: METHADONE HCL 5 MG TABLET (FOR DETOX USE ONLY) ONE (09:19)
[2020-09-16] MEDS ORDERED: METHADONE HCL 10 MG TABLET (FOR DETOX USE ONLY) ONE (09:19)
[2020-09-16] MEDS ORDERED: METHADONE (DETOX) 20 MG, METHADONE (DETOX) 5 MG PO ONE (10:00)
[2020-09-16] MEDS: hydrOXYzine PAMOATE 25 MG CAPSULE (FP) PO PRN (10:56)
[2020-09-16] MEDS: NICOTINE 21 MG/24 HOURS TOPICAL PATCH TD SCH (10:56)
[2020-09-16] MEDS: PRENATAL VITAMINS W/ FOLIC ACID TABLET (FP) PO SCH (10:58)
[2020-09-16 12:00] LABS: HEMATOCRIT 38.2 % (35.4-49); MCH 30.7 pg (25.7-33.7); MEAN CELL VOLUME 90.1 fl (80-96); MEAN PLT VOLUME 8.1 fl (7.5-11.1); PLATELET COUNT 300 K/MM3 (134-434); RBC 4.24 M/mm3 (4.00-5.60); RDW 15.1 % (11.9-15.9); WHITE BLOOD COUNT 9.2 K/mm3 (4.0-10.0)
[2020-09-16 12:03] LABS: POTASSIUM 4.3 mmol/L (3.5-5.1)
[2020-09-16 12:12] LABS: ALBUMIN 3.4 g/dl (3.4-5.0); BLOOD UREA NITROGEN 11.6 mg/dL (7-18)
[2020-09-16 12:17] LABS: TOT PROT 7.1 g/dl (6.4-8.2)
[2020-09-16 12:18] LABS: BILIRUBIN,TOTAL 0.7 mg/dL (0.2-1)
[2020-09-16] MEDS ORDERED: TRIMETHOBENZAMIDE HCL 300 MG CAPSULE PO PRN (15:42)
[2020-09-16] MEDS: THIAMINE HCL 100 MG TABLET (FP) PO SCH (23:25)
[2020-09-16] MEDS: MELATONIN 5 MG TABLETS PO SCH (23:25)
[2020-09-17] MEDS ORDERED: METHADONE HCL 10 MG TABLET (FOR DETOX USE ONLY) PO ONE (10:00)
[2020-09-17] MEDS: NICOTINE 21 MG/24 HOURS TOPICAL PATCH TD SCH (11:41)
[2020-09-17] MEDS: PRENATAL VITAMINS W/ FOLIC ACID TABLET (FP) PO SCH (11:41)
[2020-09-17] MEDS: cloNIDine HCL 0.1 MG TABLET PO PRN ×2 (18:23→22:58)
[2020-09-17] MEDS: hydrOXYzine PAMOATE 25 MG CAPSULE (FP) PO PRN (18:23)
[2020-09-17] MEDS: MELATONIN 5 MG TABLETS PO SCH (22:58)
[2020-09-17] MEDS: THIAMINE HCL 100 MG TABLET (FP) PO SCH (22:58)
[2020-09-18] MEDS ORDERED: METHADONE HCL 5 MG TABLET (FOR DETOX USE ONLY) ONE (09:54)
[2020-09-18] MEDS ORDERED: METHADONE HCL 10 MG TABLET (FOR DETOX USE ONLY) ONE (09:55)
[2020-09-18] MEDS ORDERED: METHADONE (DETOX) 10 MG, METHADONE (DETOX) 5 MG PO ONE (10:00)
[2020-09-18] MEDS: PRENATAL VITAMINS W/ FOLIC ACID TABLET (FP) PO SCH (10:52)
[2020-09-18] MEDS: METHOCARBAMOL 500 MG TABLET PO PRN ×2 (10:52→18:33)
[2020-09-18] MEDS: IBUPROFEN 400 MG TABLET (FP) PO PRN (10:52)
[2020-09-18] MEDS: NICOTINE 21 MG/24 HOURS TOPICAL PATCH TD SCH (10:52)
[2020-09-18] MEDS: hydrOXYzine PAMOATE 25 MG CAPSULE (FP) PO PRN (18:33)
[2020-09-18] MEDS: MELATONIN 5 MG TABLETS PO SCH (23:12)
[2020-09-18] MEDS: THIAMINE HCL 100 MG TABLET (FP) PO SCH (23:12)
[2020-09-19] MEDS: METHOCARBAMOL 500 MG TABLET PO PRN (07:08)
[2020-09-19] MEDS ORDERED: METHADONE HCL 10 MG TABLET (FOR DETOX USE ONLY) PO ONE (10:00)
[2020-09-19] MEDS: PRENATAL VITAMINS W/ FOLIC ACID TABLET (FP) PO SCH (10:03)
[2020-09-19] MEDS: IBUPROFEN 400 MG TABLET (FP) PO PRN (10:04)
[2020-09-19] MEDS: NICOTINE 21 MG/24 HOURS TOPICAL PATCH TD SCH (10:07)
[2020-09-19 14:11] VITALS: BP 130/72; PULSE 85; TEMP 96.6
[2020-09-20] MEDS ORDERED: METHADONE HCL 5 MG TABLET (FOR DETOX USE ONLY) PO ONE (06:00)
== END 2020-09-19 13:43 | disposition home or self-care (01) | DRG 773 ==
LOC: YASAS 12:56 → Y6N 15:47
PROVIDERS: ADMIT Allergy & Immunology; ATTEND Allergy & Immunology
PROC: HZ2ZZZZ Detoxification Services for Substance Abuse Treatment (ICD-10-PCS; principal; 2020-09-15)
DX: F11.23 Opioid dependence with withdrawal (principal); F14.20 Cocaine dependence, uncomplicated; F17.210 Nicotine dependence, cigarettes, uncomplicated; F25.9 Schizoaffective disorder, unspecified; F39 Unspecified mood [affective] disorder; F41.9 Anxiety disorder, unspecified; Z56.0 Unemployment, unspecified; Z59.0 Homelessness; Z91.018 Allergy to other foods
CPT/HCPCS: 36415; 80053; 82962; 85027; 86780; 93005; 93010; C9803; J0735; U0003

== ENCOUNTER 2020-11-08 14:11 | Inpatient (IN) | payer OTHER ==
[2020-11-08 15:58] VITALS: BMI 25.2
[2020-11-08] MEDS ORDERED: IBUPROFEN 400 MG TABLET (FP) PO PRN (16:47)
[2020-11-08] MEDS ORDERED: MAGNESIUM HYDROX 2400MG/30ML ORAL SUSPENSION 30 ML CUP PO PRN (16:47)
[2020-11-08] MEDS ORDERED: cloNIDine HCL 0.1 MG TABLET PO PRN (16:47)
[2020-11-08] MEDS ORDERED: MAGNESIUM CITRATE 300 ML BOTTLE PO PRN (16:47)
[2020-11-08] MEDS ORDERED: MAG HYDROX/AL HYDROX/SIMETH 30 ML UNIT-DOSE CUP PO PRN (16:47)
[2020-11-08] MEDS ORDERED: BISMUTH SUBSALICYLATE 524 MG/30 ML UD PO PRN (16:47)
[2020-11-08] MEDS ORDERED: NICOTINE POLACRILEX 2 MG GUM BUC PRN (16:47)
[2020-11-08] MEDS ORDERED: MENTHOL/PHENOL 1 EACH UD MM PRN (16:47)
[2020-11-08] MEDS ORDERED: ONDANSETRON *ODT* 4 MG TABLET SL PRN (16:47)
[2020-11-08] MEDS ORDERED: METHADONE HCL 10 MG TABLET (FOR DETOX USE ONLY) PO ONE (16:47)
[2020-11-08] MEDS ORDERED: ACETAMINOPHEN 325 MG TABLET (FP) PO PRN ×2 (16:47)
[2020-11-08] MEDS ORDERED: cloNIDine HCL 0.1 MG TABLET ONE (17:14)
[2020-11-08] MEDS: hydrOXYzine PAMOATE 25 MG CAPSULE (FP) PO SCH ×2 (18:18→23:29)
[2020-11-08] MEDS: METHOCARBAMOL 500 MG TABLET PO PRN (18:18)
[2020-11-08] MEDS: NICOTINE 21 MG/24 HOURS TOPICAL PATCH TD SCH (18:19)
[2020-11-08] MEDS: MELATONIN 5 MG TABLETS PO SCH (23:29)
[2020-11-08] MEDS: THIAMINE HCL 100 MG TABLET (FP) PO SCH (23:29)
[2020-11-09] MEDS: hydrOXYzine PAMOATE 25 MG CAPSULE (FP) PO SCH ×2 (07:22→09:21)
[2020-11-09] MEDS ORDERED: METHADONE HCL 10 MG TABLET (FOR DETOX USE ONLY) ONE (08:24)
[2020-11-09] MEDS ORDERED: METHADONE HCL 5 MG TABLET (FOR DETOX USE ONLY) ONE (08:25)
[2020-11-09] MEDS: PRENATAL VITAMINS W/ FOLIC ACID TABLET (FP) PO SCH (09:21)
[2020-11-09] MEDS: NICOTINE 21 MG/24 HOURS TOPICAL PATCH TD SCH (09:21)
[2020-11-09] MEDS ORDERED: METHADONE (DETOX) 20 MG, METHADONE (DETOX) 5 MG PO ONE (10:00)
[2020-11-09 11:03] LABS: POTASSIUM 4.5 mmol/L (3.5-5.1)
[2020-11-09 11:15] LABS: CALCIUM 8.8 mg/dL (8.5-10.1)
[2020-11-09 11:16] LABS: BLOOD UREA NITROGEN 10.8 mg/dL (7-18)
[2020-11-09 11:17] LABS: HEMOGLOBIN 12.2 GM/dL (11.7-16.9); MCH 30.4 pg (25.7-33.7); MCHC 33.9 g/dl (32.0-35.9); MEAN CELL VOLUME 89.9 fl (80-96); MEAN PLT VOLUME 8.5 fl (7.5-11.1); PLATELET COUNT 299 K/MM3 (134-434); RDW 15.6 % (11.9-15.9); WHITE BLOOD COUNT 5.4 K/mm3 (4.0-10.0)
[2020-11-09 11:19] LABS: CREATININE 1.1 mg/dL (0.55-1.3)
[2020-11-09 11:21] LABS: BILIRUBIN,TOTAL 1.4 mg/dL (0.2-1); TOT PROT 6.5 g/dl (6.4-8.2)
[2020-11-09] MEDS: LIDOCAINE 5% TOPICAL PATCH TP SCH (11:36)
[2020-11-09] MEDS: THIAMINE HCL 100 MG TABLET (FP) PO SCH (22:55)
[2020-11-09] MEDS: MELATONIN 5 MG TABLETS PO SCH (22:55)
[2020-11-09] MEDS: LIDOCAINE PATCH REMOVAL MC SCH (23:08)
[2020-11-10] MEDS ORDERED: METHADONE HCL 10 MG TABLET (FOR DETOX USE ONLY) PO ONE (10:00)
[2020-11-10] MEDS: PRENATAL VITAMINS W/ FOLIC ACID TABLET (FP) PO SCH (10:43)
[2020-11-10] MEDS: METHOCARBAMOL 500 MG TABLET PO PRN ×2 (10:43→18:22)
[2020-11-10] MEDS: NICOTINE 21 MG/24 HOURS TOPICAL PATCH TD SCH (10:44)
[2020-11-10] MEDS: LIDOCAINE 5% TOPICAL PATCH TP SCH (10:44)
[2020-11-10] MEDS: hydrOXYzine PAMOATE 25 MG CAPSULE (FP) PO PRN (18:22)
[2020-11-10] MEDS: MELATONIN 5 MG TABLETS PO SCH (22:42)
[2020-11-10] MEDS: LIDOCAINE PATCH REMOVAL MC SCH (22:42)
[2020-11-10] MEDS: THIAMINE HCL 100 MG TABLET (FP) PO SCH (22:42)
[2020-11-11] MEDS ORDERED: METHADONE HCL 5 MG TABLET (FOR DETOX USE ONLY) ONE (08:59)
[2020-11-11] MEDS ORDERED: METHADONE HCL 10 MG TABLET (FOR DETOX USE ONLY) ONE (08:59)
[2020-11-11] MEDS: METHOCARBAMOL 500 MG TABLET PO PRN ×2 (09:51→18:13)
[2020-11-11] MEDS: LIDOCAINE 5% TOPICAL PATCH TP SCH (09:51)
[2020-11-11] MEDS: NICOTINE 21 MG/24 HOURS TOPICAL PATCH TD SCH (09:51)
[2020-11-11] MEDS: PRENATAL VITAMINS W/ FOLIC ACID TABLET (FP) PO SCH (09:51)
[2020-11-11] MEDS ORDERED: METHADONE (DETOX) 10 MG, METHADONE (DETOX) 5 MG PO ONE (10:00)
[2020-11-11] MEDS: hydrOXYzine PAMOATE 25 MG CAPSULE (FP) PO PRN ×2 (18:13→22:35)
[2020-11-11] MEDS: LIDOCAINE PATCH REMOVAL MC SCH (22:34)
[2020-11-11] MEDS: THIAMINE HCL 100 MG TABLET (FP) PO SCH (22:34)
[2020-11-11] MEDS: MELATONIN 5 MG TABLETS PO SCH (22:35)
[2020-11-12] MEDS ORDERED: METHADONE HCL 10 MG TABLET (FOR DETOX USE ONLY) PO ONE (10:00)
[2020-11-12] MEDS: PRENATAL VITAMINS W/ FOLIC ACID TABLET (FP) PO SCH (10:53)
[2020-11-12] MEDS: LIDOCAINE 5% TOPICAL PATCH TP SCH (10:54)
[2020-11-12] MEDS: NICOTINE 21 MG/24 HOURS TOPICAL PATCH TD SCH (10:54)
[2020-11-12] MEDS: METHOCARBAMOL 500 MG TABLET PO PRN ×2 (10:56→18:37)
[2020-11-12] MEDS: hydrOXYzine PAMOATE 25 MG CAPSULE (FP) PO PRN (18:37)
[2020-11-12] MEDS: MELATONIN 5 MG TABLETS PO SCH (21:13)
[2020-11-12] MEDS: LIDOCAINE PATCH REMOVAL MC SCH (21:13)
[2020-11-12] MEDS: THIAMINE HCL 100 MG TABLET (FP) PO SCH (21:13)
[2020-11-13] MEDS ORDERED: METHADONE HCL 5 MG TABLET (FOR DETOX USE ONLY) PO ONE (06:00)
[2020-11-13 06:20] VITALS: PULSE 64
[2020-11-13 09:09] VITALS: BP 121/78; TEMP 97.6
[2020-11-13] MEDS: NICOTINE 21 MG/24 HOURS TOPICAL PATCH TD SCH (10:19)
[2020-11-13] MEDS: LIDOCAINE 5% TOPICAL PATCH TP SCH (10:19)
[2020-11-13] MEDS: PRENATAL VITAMINS W/ FOLIC ACID TABLET (FP) PO SCH (10:23)
[2020-11-13] MEDS: METHOCARBAMOL 500 MG TABLET PO PRN (10:24)
[2020-11-13] MEDS: hydrOXYzine PAMOATE 25 MG CAPSULE (FP) PO PRN (10:30)
== END 2020-11-13 11:09 | disposition other institution (70) | DRG 773 ==
LOC: YASAS 14:11 → Y3N 16:31
PROVIDERS: ADMIT Allergy & Immunology; ATTEND Allergy & Immunology
PROC: HZ2ZZZZ Detoxification Services for Substance Abuse Treatment (ICD-10-PCS; principal; 2020-11-08)
DX: F11.23 Opioid dependence with withdrawal (principal); F10.230 Alcohol dependence with withdrawal, uncomplicated; F14.20 Cocaine dependence, uncomplicated; F13.10 Sedative, hypnotic or anxiolytic abuse, uncomplicated; F17.210 Nicotine dependence, cigarettes, uncomplicated; F25.9 Schizoaffective disorder, unspecified; F19.24 Other psychoactive substance dependence with psychoactive substance-induced mood disorder; F51.05 Insomnia due to other mental disorder; F31.9 Bipolar disorder, unspecified; E88.09 Other disorders of plasma-protein metabolism, not elsewhere classified; R63.4 Abnormal weight loss; Z68.25 Body mass index [BMI] 25.0-25.9, adult
CPT/HCPCS: 36415; 80053; 82247; 85027; 86780; C9803; U0003; U0005

== ENCOUNTER 2020-11-13 10:51 | Inpatient (IN) | payer OTHER ==
[2020-11-13] MEDS ORDERED: P-EPHED 60MG/TRIPROLIDI 2.5MG TABLET PO PRN (13:38)
[2020-11-13] MEDS ORDERED: NICOTINE POLACRILEX 2 MG GUM BUC PRN (13:38)
[2020-11-13] MEDS ORDERED: MAG HYDROX/AL HYDROX/SIMETH 30 ML UNIT-DOSE CUP PO PRN (13:38)
[2020-11-13] MEDS ORDERED: MAGNESIUM HYDROX 2400MG/30ML ORAL SUSPENSION 30 ML CUP PO PRN (13:38)
[2020-11-13] MEDS ORDERED: MENTHOL/PHENOL 1 EACH UD MM PRN (13:38)
[2020-11-13] MEDS ORDERED: ACETAMINOPHEN 325 MG TABLET (FP) PO PRN (13:38)
[2020-11-13] MEDS ORDERED: guaiFENesin 200 MG/10 ML 10 ML UNIT-DOSE CUPS PO PRN (13:38)
[2020-11-13] MEDS ORDERED: MAGNESIUM CITRATE 300 ML BOTTLE PO PRN (13:38)
[2020-11-13] MEDS: hydrOXYzine PAMOATE 25 MG CAPSULE (FP) PO PRN (21:14)
[2020-11-13] MEDS: THIAMINE HCL 100 MG TABLET (FP) PO SCH (21:14)
[2020-11-13] MEDS: MELATONIN 5 MG TABLETS PO SCH (21:14)
[2020-11-14] MEDS: PRENATAL VITAMINS W/ FOLIC ACID TABLET (FP) PO SCH (09:47)
[2020-11-14] MEDS: NICOTINE 21 MG/24 HOURS TOPICAL PATCH TD SCH (09:47)
[2020-11-14] MEDS ORDERED: NICOTINE 7 MG/24 HOURS TOPICAL PATCH TD SCH (10:00)
[2020-11-14] MEDS: hydrOXYzine PAMOATE 25 MG CAPSULE (FP) PO PRN (18:50)
[2020-11-14] MEDS: IBUPROFEN 400 MG TABLET (FP) PO PRN (18:51)
[2020-11-14] MEDS ORDERED: PT OWN MED DRAWER 7, Y5N ONE (19:42)
[2020-11-14] MEDS: MELATONIN 5 MG TABLETS PO SCH (21:28)
[2020-11-14] MEDS: THIAMINE HCL 100 MG TABLET (FP) PO SCH (21:28)
[2020-11-14] MEDS: LOPERAMIDE HCL 2 MG CAPSULE PO PRN (21:29)
[2020-11-15] MEDS: hydrOXYzine PAMOATE 25 MG CAPSULE (FP) PO PRN ×2 (09:57→21:18)
[2020-11-15] MEDS: NICOTINE 21 MG/24 HOURS TOPICAL PATCH TD SCH (09:58)
[2020-11-15] MEDS: PRENATAL VITAMINS W/ FOLIC ACID TABLET (FP) PO SCH (09:58)
[2020-11-15] MEDS: LOPERAMIDE HCL 2 MG CAPSULE PO PRN (09:59)
[2020-11-15] MEDS: IBUPROFEN 400 MG TABLET (FP) PO PRN (21:17)
[2020-11-15] MEDS: THIAMINE HCL 100 MG TABLET (FP) PO SCH (21:18)
[2020-11-15] MEDS: MELATONIN 5 MG TABLETS PO SCH (21:19)
[2020-11-16 06:53] VITALS: BP 128/82; PULSE 96; TEMP 97.7
[2020-11-16] MEDS: LOPERAMIDE HCL 2 MG CAPSULE PO PRN (08:29)
[2020-11-16] MEDS: IBUPROFEN 400 MG TABLET (FP) PO PRN (08:29)
[2020-11-16] MEDS: hydrOXYzine PAMOATE 25 MG CAPSULE (FP) PO PRN (08:30)
[2020-11-16] MEDS: PRENATAL VITAMINS W/ FOLIC ACID TABLET (FP) PO SCH (09:16)
[2020-11-16] MEDS: NICOTINE 21 MG/24 HOURS TOPICAL PATCH TD SCH (09:17)
== END 2020-11-16 09:17 | disposition home or self-care (01) | DRG 772 ==
LOC: YASAS 10:51 → Y3E 10:52
PROVIDERS: ADMIT Allergy & Immunology; ATTEND Allergy & Immunology
PROC: HZ42ZZZ Group Counseling for Substance Abuse Treatment, Cognitive-Behavioral (ICD-10-PCS; principal; 2020-11-13)
DX: F11.20 Opioid dependence, uncomplicated (principal); F10.20 Alcohol dependence, uncomplicated

== ENCOUNTER 2020-12-26 19:08 | Inpatient (IN) | payer OTHER ==
[2020-12-26] MEDS ORDERED: NICOTINE POLACRILEX 2 MG GUM BUC PRN (20:36)
[2020-12-26] MEDS ORDERED: MAG HYDROX/AL HYDROX/SIMETH 30 ML UNIT-DOSE CUP PO PRN (20:36)
[2020-12-26] MEDS ORDERED: ACETAMINOPHEN 325 MG TABLET (FP) PO PRN ×2 (20:36)
[2020-12-26] MEDS ORDERED: MAGNESIUM HYDROX 2400MG/30ML ORAL SUSPENSION 30 ML CUP PO PRN (20:36)
[2020-12-26] MEDS ORDERED: ONDANSETRON *ODT* 4 MG TABLET SL PRN (20:36)
[2020-12-26] MEDS ORDERED: MENTHOL/PHENOL 1 EACH UD MM PRN (20:36)
[2020-12-26] MEDS ORDERED: IBUPROFEN 400 MG TABLET (FP) PO PRN (20:36)
[2020-12-26] MEDS ORDERED: BISMUTH SUBSALICYLATE 524 MG/30 ML UD PO PRN (20:36)
[2020-12-26] MEDS ORDERED: MAGNESIUM CITRATE 300 ML BOTTLE PO PRN (20:36)
[2020-12-26 22:08] VITALS: BMI 21.8
[2020-12-27] MEDS: MELATONIN 5 MG TABLETS PO SCH (00:08)
[2020-12-27] MEDS: THIAMINE HCL 100 MG TABLET (FP) PO SCH (00:08)
[2020-12-27 10:00] LABS: HEMATOCRIT 38.2 % (35.4-49); HEMOGLOBIN 12.9 GM/dL (11.7-16.9); MCH 30.7 pg (25.7-33.7); MCHC 33.9 g/dl (32.0-35.9); MEAN CELL VOLUME 90.8 fl (80-96); MEAN PLT VOLUME 8.8 fl (7.5-11.1); PLATELET COUNT 275 K/MM3 (134-434); RDW 14.8 % (11.9-15.9); WHITE BLOOD COUNT 5.5 K/mm3 (4.0-10.0)
[2020-12-27 10:23] LABS: CALCIUM 8.8 mg/dL (8.5-10.1)
[2020-12-27 10:24] LABS: ALBUMIN 3.2 g/dl (3.4-5.0); BLOOD UREA NITROGEN 12.9 mg/dL (7-18)
[2020-12-27 10:29] LABS: BILIRUBIN,TOTAL 1.1 mg/dL (0.2-1); TOT PROT 6.8 g/dl (6.4-8.2)
[2020-12-27] MEDS ORDERED: METHADONE HCL 10 MG TABLET (FOR DETOX USE ONLY) PO ONE (12:09)
[2020-12-27] MEDS ORDERED: cloNIDine HCL 0.1 MG TABLET PO PRN (12:09)
[2020-12-27] MEDS: hydrOXYzine PAMOATE 25 MG CAPSULE (FP) PO PRN (13:18)
[2020-12-27] MEDS: amLODIPine BESYLATE 10 MG TABLET (FP) PO SCH (13:18)
[2020-12-27] MEDS: PRENATAL VITAMINS W/ FOLIC ACID TABLET (FP) PO SCH (13:19)
[2020-12-28] MEDS: THIAMINE HCL 100 MG TABLET (FP) PO SCH ×2 (00:59→23:21)
[2020-12-28] MEDS: MELATONIN 5 MG TABLETS PO SCH ×2 (00:59→23:21)
[2020-12-28] MEDS ORDERED: METHADONE HCL 5 MG TABLET (FOR DETOX USE ONLY) ONE (09:48)
[2020-12-28] MEDS ORDERED: METHADONE HCL 10 MG TABLET (FOR DETOX USE ONLY) ONE (09:49)
[2020-12-28] MEDS ORDERED: METHADONE (DETOX) 10 MG, METHADONE (DETOX) 5 MG PO ONE (10:00)
[2020-12-28] MEDS: PRENATAL VITAMINS W/ FOLIC ACID TABLET (FP) PO SCH (11:10)
[2020-12-28] MEDS: hydrOXYzine PAMOATE 25 MG CAPSULE (FP) PO PRN (11:10)
[2020-12-28] MEDS: amLODIPine BESYLATE 10 MG TABLET (FP) PO SCH (11:10)
[2020-12-29 06:06] LABS: SARS-CoV-2 NAA Not Detected (Not Detected)
[2020-12-29] MEDS: PRENATAL VITAMINS W/ FOLIC ACID TABLET (FP) PO SCH (09:44)
[2020-12-29] MEDS: hydrOXYzine PAMOATE 25 MG CAPSULE (FP) PO PRN ×2 (09:44→19:11)
[2020-12-29] MEDS: METHOCARBAMOL 500 MG TABLET PO PRN ×2 (09:44→19:11)
[2020-12-29] MEDS: amLODIPine BESYLATE 10 MG TABLET (FP) PO SCH (09:44)
[2020-12-29] MEDS ORDERED: METHADONE HCL 10 MG TABLET (FOR DETOX USE ONLY) PO ONE (10:00)
[2020-12-29] MEDS: MELATONIN 5 MG TABLETS PO SCH (23:10)
[2020-12-29] MEDS: THIAMINE HCL 100 MG TABLET (FP) PO SCH (23:10)
[2020-12-30] MEDS ORDERED: METHADONE HCL 5 MG TABLET (FOR DETOX USE ONLY) PO ONE (06:00)
[2020-12-30] MEDS: PRENATAL VITAMINS W/ FOLIC ACID TABLET (FP) PO SCH (10:51)
[2020-12-30] MEDS: amLODIPine BESYLATE 10 MG TABLET (FP) PO SCH (10:51)
[2020-12-30] MEDS: METHOCARBAMOL 500 MG TABLET PO PRN (10:52)
[2020-12-30] MEDS: hydrOXYzine PAMOATE 25 MG CAPSULE (FP) PO PRN (10:52)
[2020-12-30 11:36] VITALS: BP 120/73; PULSE 93; TEMP 97.7
== END 2020-12-30 12:40 | disposition home or self-care (01) | DRG 773 ==
LOC: YASAS 19:08 → Y6N 22:06 → UNDOADMIN 22:06
PROVIDERS: ADMIT Allergy & Immunology; ATTEND Allergy & Immunology
PROC: HZ2ZZZZ Detoxification Services for Substance Abuse Treatment (ICD-10-PCS; principal; 2020-12-26)
DX: F11.23 Opioid dependence with withdrawal (principal); F14.20 Cocaine dependence, uncomplicated; F17.210 Nicotine dependence, cigarettes, uncomplicated; F19.24 Other psychoactive substance dependence with psychoactive substance-induced mood disorder; F25.9 Schizoaffective disorder, unspecified; F31.9 Bipolar disorder, unspecified; I10 Essential (primary) hypertension; R63.8 Other symptoms and signs concerning food and fluid intake; K08.9 Disorder of teeth and supporting structures, unspecified; Z91.81 History of falling
CPT/HCPCS: 36415; 80053; 85027; 86780; C9803; J0735; U0003; U0005

== ENCOUNTER 2020-12-30 12:49 | Inpatient (IN) | payer OTHER ==
[2020-12-30] MEDS ORDERED: ACETAMINOPHEN 325 MG TABLET (FP) PO PRN (14:26)
[2020-12-30] MEDS ORDERED: MAGNESIUM HYDROX 2400MG/30ML ORAL SUSPENSION 30 ML CUP PO PRN (14:26)
[2020-12-30] MEDS ORDERED: MAG HYDROX/AL HYDROX/SIMETH 30 ML UNIT-DOSE CUP PO PRN (14:26)
[2020-12-30] MEDS ORDERED: MENTHOL/PHENOL 1 EACH UD MM PRN (14:26)
[2020-12-30] MEDS ORDERED: MAGNESIUM CITRATE 300 ML BOTTLE PO PRN (14:26)
[2020-12-30] MEDS ORDERED: LOPERAMIDE HCL 2 MG CAPSULE PO PRN (14:26)
[2020-12-30] MEDS ORDERED: NICOTINE POLACRILEX 2 MG GUM BUC PRN (14:26)
[2020-12-30] MEDS: IBUPROFEN 400 MG TABLET (FP) PO PRN ×2 (15:44→21:23)
[2020-12-30] MEDS: THIAMINE HCL 100 MG TABLET (FP) PO SCH (21:21)
[2020-12-30] MEDS: MELATONIN 5 MG TABLETS PO SCH (21:21)
[2020-12-31] MEDS: PRENATAL VITAMINS W/ FOLIC ACID TABLET (FP) PO SCH (09:49)
[2020-12-31] MEDS: amLODIPine BESYLATE 10 MG TABLET (FP) PO SCH (09:49)
[2020-12-31] MEDS ORDERED: hydrOXYzine PAMOATE 25 MG CAPSULE (FP) PO PRN (14:29)
[2020-12-31] MEDS: THIAMINE HCL 100 MG TABLET (FP) PO SCH (22:21)
[2020-12-31] MEDS: MELATONIN 5 MG TABLETS PO SCH (22:21)
[2021-01-01 06:59] VITALS: TEMP 97.7
[2021-01-01 11:22] VITALS: BP 138/98; PULSE 105
[2021-01-01] MEDS: amLODIPine BESYLATE 10 MG TABLET (FP) PO SCH (11:43)
[2021-01-01] MEDS: PRENATAL VITAMINS W/ FOLIC ACID TABLET (FP) PO SCH (11:43)
== END 2021-01-01 11:57 | disposition left against medical advice (07) | DRG 770 ==
LOC: YASAS 12:49 → Y3W 12:50
PROVIDERS: ADMIT Allergy & Immunology; ATTEND Allergy & Immunology
PROC: HZ42ZZZ Group Counseling for Substance Abuse Treatment, Cognitive-Behavioral (ICD-10-PCS; principal; 2020-12-30)
DX: F11.20 Opioid dependence, uncomplicated (principal); F14.20 Cocaine dependence, uncomplicated

== ENCOUNTER 2021-03-04 11:32 | Inpatient (IN) | payer OTHER ==
[2021-03-04 13:01] VITALS: BMI 20.3
[2021-03-04] MEDS ORDERED: MAGNESIUM HYDROX 2400MG/30ML ORAL SUSPENSION 30 ML CUP PO PRN (13:50)
[2021-03-04] MEDS ORDERED: hydrOXYzine PAMOATE 25 MG CAPSULE (FP) PO PRN (13:50)
[2021-03-04] MEDS ORDERED: ONDANSETRON *ODT* 4 MG TABLET SL PRN (13:50)
[2021-03-04] MEDS ORDERED: ACETAMINOPHEN 325 MG TABLET (FP) PO PRN ×2 (13:50)
[2021-03-04] MEDS ORDERED: MAGNESIUM CITRATE 300 ML BOTTLE PO PRN (13:50)
[2021-03-04] MEDS ORDERED: MENTHOL/PHENOL 1 EACH UD MM PRN (13:50)
[2021-03-04] MEDS ORDERED: IBUPROFEN 400 MG TABLET (FP) PO PRN (13:50)
[2021-03-04] MEDS ORDERED: MAG HYDROX/AL HYDROX/SIMETH 30 ML UNIT-DOSE CUP PO PRN (13:50)
[2021-03-04] MEDS: MELATONIN 5 MG TABLETS PO SCH (22:39)
[2021-03-04] MEDS: THIAMINE HCL 100 MG TABLET (FP) PO SCH (22:39)
[2021-03-05] MEDS ORDERED: diazePAM 5 MG TABLET PO PRN (10:07)
[2021-03-05] MEDS ORDERED: cloNIDine HCL 0.1 MG TABLET PO PRN (10:07)
[2021-03-05] MEDS ORDERED: methaDONE HCL 10 MG TABLET (FOR DETOX USE ONLY) PO ONE (10:15)
[2021-03-05 10:24] LABS: HEMATOCRIT 38.4 % (35.4-49); HEMOGLOBIN 13.1 GM/dL (11.7-16.9); MCH 30.5 pg (25.7-33.7); MCHC 34.2 g/dl (32.0-35.9); MEAN CELL VOLUME 89.3 fl (80-96); MEAN PLT VOLUME 8.7 fl (7.5-11.1); PLATELET COUNT 304 10^3/uL (134-434); RDW 15.4 % (11.9-15.9); WHITE BLOOD COUNT 6.9 K/mm3 (4.0-10.0)
[2021-03-05 10:30] LABS: ALBUMIN 3.2 g/dl (3.4-5.0); BLOOD UREA NITROGEN 11.8 mg/dL (7-18); CALCIUM 8.8 mg/dL (8.5-10.1)
[2021-03-05 10:31] LABS: CREATININE 0.9 mg/dL (0.55-1.3)
[2021-03-05 10:33] LABS: BILIRUBIN,TOTAL 0.6 mg/dL (0.2-1); TOT PROT 6.6 g/dl (6.4-8.2)
[2021-03-05] MEDS: diazePAM 5 MG TABLET PO SCH ×3 (10:34→22:50)
[2021-03-05] MEDS: PRENATAL VITAMINS W/ FOLIC ACID TABLET (FP) PO SCH (10:36)
[2021-03-05] MEDS ORDERED: TRIMETHOBENZAMIDE HCL 200MG/2ML INJ IM PRN (11:25)
[2021-03-05] MEDS: NORTRIPTYLINE HCL 25 MG CAPSULE PO SCH (22:50)
[2021-03-05] MEDS: MELATONIN 5 MG TABLETS PO SCH (22:51)
[2021-03-05] MEDS: THIAMINE HCL 100 MG TABLET (FP) PO SCH (22:51)
[2021-03-06] MEDS: diazePAM 5 MG TABLET PO SCH ×4 (06:10→22:42)
[2021-03-06] MEDS ORDERED: methaDONE HCL 10 MG TABLET (FOR DETOX USE ONLY) ONE (09:42)
[2021-03-06] MEDS: METHOCARBAMOL 500 MG TABLET PO PRN (10:51)
[2021-03-06] MEDS: PRENATAL VITAMINS W/ FOLIC ACID TABLET (FP) PO SCH (10:51)
[2021-03-06] MEDS: THIAMINE HCL 100 MG TABLET (FP) PO SCH (22:41)
[2021-03-06] MEDS: NORTRIPTYLINE HCL 25 MG CAPSULE PO SCH (22:42)
[2021-03-06] MEDS: MELATONIN 5 MG TABLETS PO SCH (23:11)
[2021-03-07] MEDS: diazePAM 5 MG TABLET PO SCH ×3 (06:55→22:45)
[2021-03-07] MEDS ORDERED: methaDONE HCL 10 MG TABLET (FOR DETOX USE ONLY) PO ONE (10:00)
[2021-03-07] MEDS: PRENATAL VITAMINS W/ FOLIC ACID TABLET (FP) PO SCH (11:20)
[2021-03-07] MEDS: amLODIPine BESYLATE 10 MG TABLET (FP) PO SCH (13:30)
[2021-03-07] MEDS: METHOCARBAMOL 500 MG TABLET PO PRN (18:06)
[2021-03-07] MEDS: NORTRIPTYLINE HCL 25 MG CAPSULE PO SCH (22:44)
[2021-03-07] MEDS: THIAMINE HCL 100 MG TABLET (FP) PO SCH (22:44)
[2021-03-07] MEDS: MELATONIN 5 MG TABLETS PO SCH (22:44)
[2021-03-07] MEDS: BISMUTH SUBSALICYLATE 524 MG/30 ML PO PRN (22:54)
[2021-03-08] MEDS: BISMUTH SUBSALICYLATE 524 MG/30 ML PO PRN (03:44)
[2021-03-08] MEDS: diazePAM 5 MG TABLET PO SCH ×2 (05:44→17:59)
[2021-03-08] MEDS ORDERED: LOPERAMIDE HCL 2 MG CAPSULE PO PRN (09:15)
[2021-03-08] MEDS ORDERED: methaDONE HCL 10 MG TABLET (FOR DETOX USE ONLY) ONE (09:46)
[2021-03-08] MEDS: PRENATAL VITAMINS W/ FOLIC ACID TABLET (FP) PO SCH (10:29)
[2021-03-08] MEDS: amLODIPine BESYLATE 10 MG TABLET (FP) PO SCH (10:30)
[2021-03-08] MEDS: THIAMINE HCL 100 MG TABLET (FP) PO SCH (22:47)
[2021-03-08] MEDS: MELATONIN 5 MG TABLETS PO SCH (22:47)
[2021-03-08] MEDS: NORTRIPTYLINE HCL 25 MG CAPSULE PO SCH (22:47)
[2021-03-09] MEDS ORDERED: diazePAM 5 MG TABLET PO ONE (06:00)
[2021-03-09] MEDS ORDERED: methaDONE HCL 10 MG TABLET (FOR DETOX USE ONLY) PO ONE (10:00)
[2021-03-09] MEDS: PRENATAL VITAMINS W/ FOLIC ACID TABLET (FP) PO SCH (10:06)
[2021-03-09] MEDS: amLODIPine BESYLATE 10 MG TABLET (FP) PO SCH (10:07)
[2021-03-09] MEDS: NORTRIPTYLINE HCL 25 MG CAPSULE PO SCH (22:25)
[2021-03-09] MEDS: THIAMINE HCL 100 MG TABLET (FP) PO SCH (22:25)
[2021-03-09] MEDS: MELATONIN 5 MG TABLETS PO SCH (22:25)
[2021-03-09] MEDS: METHOCARBAMOL 500 MG TABLET PO PRN (22:27)
[2021-03-10 06:48] VITALS: BP 119/76; PULSE 82; TEMP 97.2
== END 2021-03-10 09:15 | disposition home or self-care (01) | DRG 773 ==
LOC: YASAS 11:32 → Y3N 14:59
PROVIDERS: ADMIT Allergy & Immunology; ATTEND Allergy & Immunology
PROC: HZ2ZZZZ Detoxification Services for Substance Abuse Treatment (ICD-10-PCS; principal; 2021-03-04)
DX: F11.23 Opioid dependence with withdrawal (principal); F10.230 Alcohol dependence with withdrawal, uncomplicated; F14.20 Cocaine dependence, uncomplicated; F17.210 Nicotine dependence, cigarettes, uncomplicated; F19.282 Other psychoactive substance dependence with psychoactive substance-induced sleep disorder; F19.24 Other psychoactive substance dependence with psychoactive substance-induced mood disorder; F25.9 Schizoaffective disorder, unspecified; F31.9 Bipolar disorder, unspecified; I10 Essential (primary) hypertension; M54.5 Low back pain; G89.29 Other chronic pain; Z56.0 Unemployment, unspecified; Z59.0 Homelessness
CPT/HCPCS: 36415; 80053; 85027; 86780; C9803; J0735; Q0162; U0003; U0005

== ENCOUNTER 2022-10-07 21:49 | Inpatient (IN) | payer OTHER ==
[2022-10-07 22:54] VITALS: BMI 23.0
[2022-10-07] MEDS ORDERED: BENZOCAINE/MENTHOL (CHLORASEPTIC ) LOZENGE MM PRN (23:42)
[2022-10-07] MEDS ORDERED: NALOXONE HCL 0.4 MG/ML VIAL IM PRN (23:42)
[2022-10-07] MEDS ORDERED: P-EPHED 60MG/TRIPROLIDI 2.5MG TABLET PO PRN (23:42)
[2022-10-07] MEDS ORDERED: IBUPROFEN 400 MG TABLET (FP) PO PRN (23:42)
[2022-10-07] MEDS ORDERED: NICOTINE POLACRILEX 2 MG GUM BUC PRN (23:42)
[2022-10-07] MEDS ORDERED: DICYCLOMINE HCL 10 MG CAPSULE PO PRN (23:42)
[2022-10-07] MEDS ORDERED: guaiFENesin 200 MG/10 ML 10 ML UNIT-DOSE CUPS PO PRN (23:42)
[2022-10-07] MEDS ORDERED: MAG HYDROX/AL HYDROX/SIMETH 30 ML UNIT-DOSE CUP PO PRN (23:42)
[2022-10-07] MEDS ORDERED: IBUPROFEN 600 MG TABLET (FP) PO PRN (23:42)
[2022-10-07] MEDS ORDERED: POLYETHYLENE GLYCOL (HEALTHYLAX) 3350 17 GM PACKET PO PRN (23:42)
[2022-10-07] MEDS ORDERED: NALOXONE HCL (KLOXXADO) 8 MG SPRAY NS PRN (23:42)
[2022-10-07] MEDS ORDERED: LOPERAMIDE HCL 2 MG CAPSULE PO PRN (23:42)
[2022-10-07] MEDS ORDERED: ONDANSETRON *ODT* 4 MG TABLET SL PRN (23:42)
[2022-10-07] MEDS ORDERED: ACETAMINOPHEN 325 MG TABLET (FP) PO PRN ×2 (23:42)
[2022-10-07] MEDS ORDERED: MAGNESIUM HYDROX 2400MG/30ML ORAL SUSPENSION 30 ML CUP PO PRN (23:42)
[2022-10-08] MEDS: METHOCARBAMOL 500 MG TABLET PO PRN (10:28)
[2022-10-08] MEDS: PRENATAL VITAMINS W/ FOLIC ACID TABLET (FP) PO SCH (10:28)
[2022-10-08] MEDS: HYDROCHLOROTHIAZIDE 12.5 MG CAPSULE (FP) PO SCH (10:28)
[2022-10-08 12:06] LABS: HEMATOCRIT 32.6 % (35.4-49); HEMOGLOBIN 10.8 GM/dL (11.7-16.9); MCH 29.5 pg (25.7-33.7); MCHC 33.3 g/dl (32.0-35.9); MEAN CELL VOLUME 88.8 fl (80-96); MEAN PLT VOLUME 7.7 fl (7.5-11.1); PLATELET COUNT 395 10^3/uL (134-434); RBC 3.67 M/mm3 (4.00-5.60); RDW 15.6 % (11.9-15.9); WHITE BLOOD COUNT 5.7 K/mm3 (4.0-10.0)
[2022-10-08 12:15] LABS: BILIRUBIN,TOTAL 0.2 mg/dL (0.2-1)
[2022-10-08 12:16] LABS: ALBUMIN 2.8 g/dl (3.4-5.0); CALCIUM 8.2 mg/dL (8.5-10.1)
[2022-10-08 12:20] LABS: CREATININE 0.9 mg/dL (0.55-1.3); TOT PROT 6.1 g/dl (6.4-8.2)
[2022-10-08] MEDS: hydrOXYzine PAMOATE 25 MG CAPSULE (FP) PO PRN (14:11)
[2022-10-08] MEDS: cloNIDine HCL 0.1 MG TABLET PO PRN ×2 (14:11→22:45)
[2022-10-08] MEDS ORDERED: methaDONE HCL 10 MG TABLET (FOR DETOX USE ONLY) PO ONE (17:00)
[2022-10-08] MEDS: LORazepam 2 MG TABLET PO SCH ×2 (17:47→22:45)
[2022-10-08] MEDS: THIAMINE HCL 100 MG TABLET (FP) PO SCH (22:45)
[2022-10-08] MEDS: MELATONIN 5 MG TABLETS PO PRN (22:45)
[2022-10-09] MEDS: LORazepam 2 MG TABLET PO SCH ×4 (06:00→22:28)
[2022-10-09] MEDS: HYDROCHLOROTHIAZIDE 12.5 MG CAPSULE (FP) PO SCH (10:29)
[2022-10-09] MEDS: PRENATAL VITAMINS W/ FOLIC ACID TABLET (FP) PO SCH (10:29)
[2022-10-09] MEDS: cloNIDine HCL 0.1 MG TABLET PO PRN ×2 (13:08→17:22)
[2022-10-09] MEDS: hydrOXYzine PAMOATE 25 MG CAPSULE (FP) PO PRN (13:08)
[2022-10-09] MEDS: METHOCARBAMOL 500 MG TABLET PO PRN ×2 (13:08→22:28)
[2022-10-09] MEDS: amLODIPine BESYLATE 10 MG TABLET (FP) PO SCH (14:30)
[2022-10-09] MEDS: THIAMINE HCL 100 MG TABLET (FP) PO SCH (22:28)
[2022-10-09] MEDS: MELATONIN 5 MG TABLETS PO PRN (22:29)
[2022-10-10] MEDS: LORazepam 1 MG TABLET PO SCH ×4 (07:11→22:40)
[2022-10-10] MEDS ORDERED: methaDONE HCL 10 MG TABLET (FOR DETOX USE ONLY) PO ONE (10:00)
[2022-10-10] MEDS: HYDROCHLOROTHIAZIDE 12.5 MG CAPSULE (FP) PO SCH (10:34)
[2022-10-10] MEDS: PRENATAL VITAMINS W/ FOLIC ACID TABLET (FP) PO SCH (10:34)
[2022-10-10] MEDS: amLODIPine BESYLATE 10 MG TABLET (FP) PO SCH (10:35)
[2022-10-10] MEDS: BISMUTH SUBSALICYLATE 524 MG/30 ML PO PRN (15:41)
[2022-10-10] MEDS: THIAMINE HCL 100 MG TABLET (FP) PO SCH (22:40)
[2022-10-10] MEDS: MELATONIN 5 MG TABLETS PO PRN (22:42)
[2022-10-11] MEDS: LORazepam 0.5 MG TABLET PO SCH ×4 (05:49→22:11)
[2022-10-11] MEDS: PRENATAL VITAMINS W/ FOLIC ACID TABLET (FP) PO SCH (10:40)
[2022-10-11] MEDS: amLODIPine BESYLATE 10 MG TABLET (FP) PO SCH (10:41)
[2022-10-11] MEDS: METHOCARBAMOL 500 MG TABLET PO PRN (10:41)
[2022-10-11] MEDS: HYDROCHLOROTHIAZIDE 12.5 MG CAPSULE (FP) PO SCH (10:41)
[2022-10-11] MEDS: THIAMINE HCL 100 MG TABLET (FP) PO SCH (22:11)
[2022-10-11] MEDS: MELATONIN 5 MG TABLETS PO PRN (22:12)
[2022-10-12] MEDS ORDERED: LORazepam 0.5 MG TABLET PO ONE (05:00)
[2022-10-12] MEDS ORDERED: methaDONE HCL 10 MG TABLET (FOR DETOX USE ONLY) PO ONE (10:00)
[2022-10-12] MEDS: amLODIPine BESYLATE 10 MG TABLET (FP) PO SCH (10:25)
[2022-10-12] MEDS: METHOCARBAMOL 500 MG TABLET PO PRN (10:25)
[2022-10-12] MEDS: hydrOXYzine PAMOATE 25 MG CAPSULE (FP) PO PRN (10:25)
[2022-10-12] MEDS: PRENATAL VITAMINS W/ FOLIC ACID TABLET (FP) PO SCH (10:25)
[2022-10-12] MEDS: HYDROCHLOROTHIAZIDE 12.5 MG CAPSULE (FP) PO SCH (10:25)
[2022-10-12] MEDS: THIAMINE HCL 100 MG TABLET (FP) PO SCH (23:00)
[2022-10-13] MEDS: METHOCARBAMOL 500 MG TABLET PO PRN (05:55)
[2022-10-13] MEDS: BISMUTH SUBSALICYLATE 524 MG/30 ML PO PRN (05:55)
[2022-10-13 06:11] VITALS: PULSE 104
[2022-10-13 09:29] VITALS: BP 134/79; RESP 110; TEMP 98
[2022-10-13] MEDS: PRENATAL VITAMINS W/ FOLIC ACID TABLET (FP) PO SCH (11:08)
[2022-10-13] MEDS: HYDROCHLOROTHIAZIDE 12.5 MG CAPSULE (FP) PO SCH (11:08)
[2022-10-13] MEDS: amLODIPine BESYLATE 10 MG TABLET (FP) PO SCH (11:08)
== END 2022-10-13 12:16 | disposition home or self-care (01) | DRG 773 ==
LOC: YASAS 21:49 → UNDOADMIN 10-08 00:49 → Y6N 10-08 00:49
PROVIDERS: ADMIT Allergy & Immunology; ATTEND Allergy & Immunology
PROC: HZ2ZZZZ Detoxification Services for Substance Abuse Treatment (ICD-10-PCS; principal; 2022-10-08)
DX: F11.23 Opioid dependence with withdrawal (principal); F10.230 Alcohol dependence with withdrawal, uncomplicated; F14.20 Cocaine dependence, uncomplicated; F17.210 Nicotine dependence, cigarettes, uncomplicated; F25.9 Schizoaffective disorder, unspecified; F32.A Depression, unspecified; F41.9 Anxiety disorder, unspecified; I10 Essential (primary) hypertension; M54.50 Low back pain, unspecified; G89.29 Other chronic pain; Z99.3 Dependence on wheelchair
CPT/HCPCS: 36415; 80053; 85027; 86780; C9803-CS; U0003; U0005

== ENCOUNTER 2022-10-30 14:44 | Inpatient (IN) | payer OTHER ==
[2022-10-30 15:06] VITALS: BMI 25.0
[2022-10-30] MEDS ORDERED: CEFEPIME HCL/D5W 2 GM/50 ML BAG IVPB ONE (15:24)
[2022-10-30] MEDS ORDERED: VANCOMYCIN/WATER 2 GM/400 ML PREMIX BAG IVPB ONE (15:30)
[2022-10-30] MEDS ORDERED: CEFEPIME 2 GM/100 ML BAG IVPB ONE (16:15)
[2022-10-30 16:25] LABS: BASO % 1.3 % (0-2.0); EOS % 1.8 % (0-4.5); HEMATOCRIT 35.2 % (35.4-49); HEMOGLOBIN 11.5 GM/dL (11.7-16.9); LYMPH % 21.9 % (8-40); MCH 28.5 pg (25.7-33.7); MCHC 32.6 g/dl (32.0-35.9); MEAN CELL VOLUME 87.5 fl (80-96); MEAN PLT VOLUME 7.9 fl (7.5-11.1); MONO % 7.4 % (3.8-10.2); NEUT % 67.6 % (42.8-82.8); PLATELET COUNT 389 10^3/uL (134-434); RBC 4.02 M/mm3 (4.00-5.60); RDW 16.5 % (11.9-15.9); WHITE BLOOD COUNT 6.7 K/mm3 (4.0-10.0)
[2022-10-30 16:34] LABS: INR 1.03 (0.83-1.09)
[2022-10-30 16:36] LABS: ACTIVATED PTT 34.1 SECONDS (25.2-36.5)
[2022-10-30 17:00] LABS: CALCIUM 8.7 mg/dL (8.5-10.1)
[2022-10-30 17:01] LABS: ALBUMIN 3.1 g/dl (3.4-5.0)
[2022-10-30 17:06] LABS: BILIRUBIN,TOTAL 0.3 mg/dL (0.2-1)
[2022-10-30 17:10] LABS: ERYTHROCYTE SEDIMENTATION RATE 29 mm/hr (0-20)
[2022-10-30] MEDS ORDERED: THIAMINE HCL 200 MG/2 ML VIAL IVPB ONE (21:17)
[2022-10-30] MEDS ORDERED: CLINDAMYCIN 600MG PREMIX IVPB 600 MG/50 ML BAG IVPB ONE (21:21)
[2022-10-30] MEDS ORDERED: THIAMINE HCL 200 MG/2 ML VIAL ONE (21:21)
[2022-10-30] MEDS: CLINDAMYCIN 600MG PREMIX IVPB 600 MG/50 ML BAG IVPB SCH (21:27)
[2022-10-30] MEDS: SODIUM CHLORIDE 1,000 ML IV SCH (21:27)
[2022-10-30] MEDS ORDERED: LORazepam 1 MG TABLET PO PRN (22:04)
[2022-10-31] MEDS: VANCOMYCIN/WATER 1,250 MG/250 ML BAG (RESTRICTED TO ID ONLY) IVPB SCH ×2 (00:39→12:08)
[2022-10-31] MEDS ORDERED: ONDANSETRON 4 MG/2 ML VIAL IVPUSH PRN (01:08)
[2022-10-31] MEDS: PIPERACILLIN/TAZOB 3.375 GM 3.375 GM in DEXTROSE 5%-WATER - 50 ML IVPB SCH ×2 (02:07→12:08)
[2022-10-31] MEDS: CLINDAMYCIN 600MG PREMIX IVPB 600 MG/50 ML BAG IVPB SCH ×2 (02:12→12:09)
[2022-10-31] MEDS ORDERED: LORazepam 1 MG TABLET PO PRN (08:03)
[2022-10-31 08:13] LABS: BASO % 0.9 % (0-2.0); HEMATOCRIT 37.5 % (35.4-49); HEMOGLOBIN 12.4 GM/dL (11.7-16.9); LYMPH % 10.7 % (8-40); MCH 28.9 pg (25.7-33.7); MCHC 33.2 g/dl (32.0-35.9); MEAN CELL VOLUME 87.1 fl (80-96); MONO % 2.8 % (3.8-10.2); NEUT % 85.6 % (42.8-82.8); PLATELET COUNT 402 10^3/uL (134-434); RDW 16.4 % (11.9-15.9); WHITE BLOOD COUNT 7.4 K/mm3 (4.0-10.0)
[2022-10-31 08:42] LABS: CALCIUM 8.9 mg/dL (8.5-10.1)
[2022-10-31 08:43] LABS: BLOOD UREA NITROGEN 11.1 mg/dL (7-18); MAGNESIUM 1.5 mg/dL (1.8-2.4)
[2022-10-31 08:46] LABS: PHOSPHOROUS 2.3 mg/dL (2.5-4.9)
[2022-10-31 08:47] LABS: BILIRUBIN,TOTAL 0.8 mg/dL (0.2-1); TOT PROT 7.2 g/dl (6.4-8.2)
[2022-10-31] MEDS ORDERED: CEFEPIME 2 GM in DEXTROSE 5%-WATER 100 ML IVPB SCH (10:00)
[2022-10-31 10:27] LABS: ARTERIAL BLD GAS O2 SATURATION 92.4 % (95-98); ARTERIAL BLOOD GAS BASE EXCESS 0.3 mmol/L (-2-2); ARTERIAL BLOOD GAS PO2 57.6 mmHg (80-100); ARTERIAL BLOOD GAS pH 7.491 (7.350-7.450)
[2022-10-31] MEDS ORDERED: LORazepam 2 MG TABLET PO SCH (11:00)
[2022-10-31] MEDS: FOLIC ACID 1 MG TABLET (FP) PO SCH (11:26)
[2022-10-31] MEDS: THIAMINE HCL 100 MG TABLET (FP) PO SCH (11:26)
[2022-10-31] MEDS: CYANOCOBALAMIN 1,000 MCG TABLET (FP) PO SCH (11:26)
[2022-10-31] MEDS: MAGNESIUM SULF 50% (8.12 MEQ/2 ML-1 GM VIAL) IVPB SCH (12:08)
[2022-10-31] MEDS: ENOXAPARIN NA (PORCINE) 40 MG/0.4 ML DISP.SYRIN SQ SCH (12:09)
[2022-10-31] MEDS: NICOTINE 14 MG/24 HOURS TOPICAL PATCH TD SCH (12:10)
[2022-10-31] MEDS ORDERED: MAGNESIUM SULF 50% (8.12 MEQ/2 ML-1 GM VIAL) IVPB ONE (12:40)
[2022-10-31] MEDS: NALOXONE HCL 0.4 MG/ML VIAL IVPUSH SCH ×2 (14:26→15:05)
[2022-10-31] MEDS: VANCOMYCIN 1 GM/200 ML PREMIX BAG (RESTRICTED TO ID ONLY) IVPB SCH (14:26)
[2022-10-31] MEDS: SODIUM CHLORIDE 1,000 ML IV SCH ×2 (15:05→21:51)
[2022-10-31 19:40] LABS: EPI CELLS 8 /uL (0-25.1); HYALINE CASTS 1 /uL (0-3.1); PH,URINE 6.5 (5.0-8.0); URINE APPEARANCE CLEAR; URINE BACTERIA 3 /uL (0-1359); URINE BILIRUBIN NEGATIVE (NEGATIVE); URINE COLOR YELLOW; URINE GLUCOSE (UA) NEGATIVE (NEGATIVE); URINE KETONE 2+ (NEGATIVE); URINE LEUK ESTERASE NEGATIVE (NEGATIVE); URINE NITRITE NEGATIVE (NEGATIVE); URINE PROTEIN 1+ (NEGATIVE); URINE RBC 11 /uL (0-23.9); URINE WBC 13 /uL (0-25.8)
[2022-10-31 20:05] LABS: METHADONE, UR NEGATIVE (NEGATIVE); PHENCYCLIDINE,URINE NEGATIVE (NEGATIVE); URINE AMPHETAMINES NEGATIVE (NEGATIVE); URINE BARBITURATES NEGATIVE (NEGATIVE); URINE BENZODIAZEPINES NEGATIVE (NEGATIVE)
[2022-10-31 20:44] LABS: COCAINE, UR POSITIVE (NEGATIVE); OPIATES, URI POSITIVE (NEGATIVE)
[2022-10-31] MEDS: PANTOPRAZOLE SODIUM 40 MG VIAL IVPUSH SCH (21:46)
[2022-10-31] MEDS ORDERED: VANCOMYCIN/WATER 1,250 MG/250 ML BAG (RESTRICTED TO ID ONLY) IVPB SCH (23:45)
[2022-11-01] MEDS: VANCOMYCIN 1 GM/200 ML PREMIX BAG (RESTRICTED TO ID ONLY) IVPB SCH ×2 (02:16→13:14)
[2022-11-01] MEDS: DEXTROSE 5%-NORMAL SALINE 1,000 ML IV SCH ×3 (02:33→21:25)
[2022-11-01] MEDS ORDERED: PIPERACILLIN/TAZOB 3.375 GM 3.375 GM in DEXTROSE 5%-WATER - 50 ML IVPB SCH (03:00)
[2022-11-01 07:12] LABS: BASO % 0.6 % (0-2.0); HEMATOCRIT 37.9 % (35.4-49); HEMOGLOBIN 12.5 GM/dL (11.7-16.9); LYMPH % 15.9 % (8-40); MCH 29.2 pg (25.7-33.7); MCHC 33.1 g/dl (32.0-35.9); MEAN CELL VOLUME 88.4 fl (80-96); MEAN PLT VOLUME 8.2 fl (7.5-11.1); MONO % 5.4 % (3.8-10.2); NEUT % 78.1 % (42.8-82.8); PLATELET COUNT 463 10^3/uL (134-434); RBC 4.29 M/mm3 (4.00-5.60); RDW 16.2 % (11.9-15.9); WHITE BLOOD COUNT 8.8 K/mm3 (4.0-10.0)
[2022-11-01 07:58] LABS: CALCIUM 8.6 mg/dL (8.5-10.1)
[2022-11-01 07:59] LABS: ALBUMIN 2.8 g/dl (3.4-5.0); BLOOD UREA NITROGEN 16.2 mg/dL (7-18); MAGNESIUM 1.8 mg/dL (1.8-2.4)
[2022-11-01 08:02] LABS: PHOSPHOROUS 2.7 mg/dL (2.5-4.9)
[2022-11-01 08:03] LABS: BILIRUBIN,TOTAL 0.7 mg/dL (0.2-1); TOT PROT 6.7 g/dl (6.4-8.2)
[2022-11-01] MEDS: PANTOPRAZOLE SODIUM 40 MG VIAL IVPUSH SCH (09:40)
[2022-11-01] MEDS: FOLIC ACID 1 MG TABLET (FP) PO SCH (09:40)
[2022-11-01] MEDS: CYANOCOBALAMIN 1,000 MCG TABLET (FP) PO SCH (09:40)
[2022-11-01] MEDS: ENOXAPARIN NA (PORCINE) 40 MG/0.4 ML DISP.SYRIN SQ SCH ×2 (09:41→09:47)
[2022-11-01] MEDS: NICOTINE 14 MG/24 HOURS TOPICAL PATCH TD SCH ×2 (09:41→09:47)
[2022-11-01] MEDS: THIAMINE HCL 100 MG TABLET (FP) PO SCH (09:41)
[2022-11-01] MEDS ORDERED: ONDANSETRON 4 MG/2 ML VIAL IVPUSH PRN (11:58)
[2022-11-01] MEDS ORDERED: LORazepam 1 MG TABLET PO PRN ×2 (11:58)
[2022-11-01] MEDS: PIPERACILLIN/TAZOB 3.375 GM 3.375 GM in DEXTROSE 5%-WATER - 50 ML IVPB SCH ×2 (16:07→17:31)
[2022-11-01] MEDS ORDERED: LORazepam 1 MG TABLET PO SCH (17:00)
[2022-11-02] MEDS: PIPERACILLIN/TAZOB 3.375 GM 3.375 GM in DEXTROSE 5%-WATER - 50 ML IVPB SCH ×3 (04:00→17:11)
[2022-11-02] MEDS ORDERED: LORazepam 1 MG TABLET PO SCH ×2 (05:00)
[2022-11-02] MEDS: CYANOCOBALAMIN 1,000 MCG TABLET (FP) PO SCH (09:19)
[2022-11-02] MEDS: NICOTINE 14 MG/24 HOURS TOPICAL PATCH TD SCH (09:19)
[2022-11-02] MEDS: PANTOPRAZOLE SODIUM 40 MG VIAL IVPUSH SCH (09:19)
[2022-11-02] MEDS: THIAMINE HCL 100 MG TABLET (FP) PO SCH (09:19)
[2022-11-02] MEDS: FOLIC ACID 1 MG TABLET (FP) PO SCH (09:19)
[2022-11-02] MEDS ORDERED: ENOXAPARIN NA (PORCINE) 40 MG/0.4 ML DISP.SYRIN SQ SCH (10:00)
[2022-11-02] MEDS: chlordiazePOXIDE HCL 25 MG CAPSULE PO PRN ×3 (10:15→22:42)
[2022-11-02] MEDS ORDERED: LOSARTAN POTASSIUM 50 MG TABLET PO ONE (11:10)
[2022-11-02] MEDS ORDERED: hydrALAZINE HCL 10 MG TABLET PO ONE ×2 (18:51→22:15)
[2022-11-02] MEDS ORDERED: LOPERAMIDE HCL 2 MG CAPSULE PO ONE ×2 (18:53→22:15)
[2022-11-02] MEDS: MELATONIN 5 MG TABLETS PO PRN (23:21)
[2022-11-03] MEDS ORDERED: LORazepam 0.5 MG TABLET PO PRN ×2
[2022-11-03] MEDS: PIPERACILLIN/TAZOB 3.375 GM 3.375 GM in DEXTROSE 5%-WATER - 50 ML IVPB SCH ×3 (02:23→17:23)
[2022-11-03] MEDS ORDERED: LABETALOL HCL 5 MG/1 ML (100MG/20 ML VIAL) IVPUSH ONE (03:16)
[2022-11-03] MEDS ORDERED: LABETALOL HCL 20 MG/4 ML VIAL IVPB ONE (03:30)
[2022-11-03] MEDS ORDERED: LABETALOL HCL 20 MG/4 ML VIAL IVPUSH ONE (03:30)
[2022-11-03] MEDS ORDERED: LORazepam 0.5 MG TABLET PO SCH ×2 (05:00)
[2022-11-03 08:18] LABS: BASO % 0.8 % (0-2.0); EOS % 0.6 % (0-4.5); HEMATOCRIT 36.7 % (35.4-49); HEMOGLOBIN 12.4 GM/dL (11.7-16.9); LYMPH % 23.9 % (8-40); MCH 29.2 pg (25.7-33.7); MCHC 33.9 g/dl (32.0-35.9); MEAN CELL VOLUME 86.1 fl (80-96); MONO % 6.5 % (3.8-10.2); NEUT % 68.2 % (42.8-82.8); PLATELET COUNT 407 10^3/uL (134-434); RBC 4.27 M/mm3 (4.00-5.60); WHITE BLOOD COUNT 8.4 K/mm3 (4.0-10.0)
[2022-11-03 08:56] LABS: ALBUMIN 2.6 g/dl (3.4-5.0); BLOOD UREA NITROGEN 15.8 mg/dL (7-18); MAGNESIUM 1.5 mg/dL (1.8-2.4)
[2022-11-03 08:57] LABS: CALCIUM 8.4 mg/dL (8.5-10.1)
[2022-11-03 09:01] LABS: BILIRUBIN,TOTAL 0.3 mg/dL (0.2-1); TOT PROT 6.2 g/dl (6.4-8.2)
[2022-11-03] MEDS: CYANOCOBALAMIN 1,000 MCG TABLET (FP) PO SCH (09:08)
[2022-11-03] MEDS: FOLIC ACID 1 MG TABLET (FP) PO SCH (09:08)
[2022-11-03] MEDS: NICOTINE 14 MG/24 HOURS TOPICAL PATCH TD SCH (09:08)
[2022-11-03] MEDS: PANTOPRAZOLE SODIUM 40 MG VIAL IVPUSH SCH (09:08)
[2022-11-03] MEDS: LOSARTAN POTASSIUM 50 MG TABLET PO SCH (09:08)
[2022-11-03] MEDS: THIAMINE HCL 100 MG TABLET (FP) PO SCH (09:08)
[2022-11-03] MEDS: chlordiazePOXIDE HCL 25 MG CAPSULE PO PRN ×2 (10:13→17:24)
[2022-11-03] MEDS ORDERED: ACETAMINOPHEN 325 MG TABLET (FP) PO PRN (16:00)
[2022-11-03] MEDS ORDERED: oxyCODONE HCL 5 MG TABLET PO PRN (16:00)
[2022-11-03] MEDS: ACETAMINOPHEN 325 MG TABLET (FP) PO PRN (16:11)
[2022-11-03] MEDS: oxyCODONE HCL 5 MG TABLET PO PRN ×2 (16:12→21:58)
[2022-11-03] MEDS: MELATONIN 5 MG TABLETS PO PRN (21:58)
[2022-11-04] MEDS: PIPERACILLIN/TAZOB 3.375 GM 3.375 GM in DEXTROSE 5%-WATER - 50 ML IVPB SCH ×3 (04:11→18:37)
[2022-11-04] MEDS ORDERED: LORazepam 0.5 MG TABLET PO ONE ×2 (05:00)
[2022-11-04] MEDS: CYANOCOBALAMIN 1,000 MCG TABLET (FP) PO SCH (10:04)
[2022-11-04] MEDS: FOLIC ACID 1 MG TABLET (FP) PO SCH (10:04)
[2022-11-04] MEDS: cloNIDine HCL 0.1 MG TABLET PO SCH ×2 (10:04→22:27)
[2022-11-04] MEDS: THIAMINE HCL 100 MG TABLET (FP) PO SCH (10:04)
[2022-11-04] MEDS: LOSARTAN POTASSIUM 50 MG TABLET PO SCH (10:04)
[2022-11-04] MEDS: NICOTINE 14 MG/24 HOURS TOPICAL PATCH TD SCH (10:08)
[2022-11-04] MEDS: PANTOPRAZOLE SODIUM 40 MG VIAL IVPUSH SCH (10:21)
[2022-11-04 13:41] LABS: HIV INTERPRETATION NEGATIVE (NEGATIVE)
[2022-11-04] MEDS: oxyCODONE HCL 5 MG TABLET PO PRN (15:43)
[2022-11-04] MEDS: ACETAMINOPHEN 325 MG TABLET (FP) PO PRN (15:45)
[2022-11-04] MEDS: chlordiazePOXIDE HCL 25 MG CAPSULE PO PRN (16:49)
[2022-11-04 18:37] LABS: CALCIUM 8.5 mg/dL (8.5-10.1)
[2022-11-04 18:38] LABS: ALBUMIN 2.6 g/dl (3.4-5.0); BLOOD UREA NITROGEN 14.4 mg/dL (7-18); MAGNESIUM 1.5 mg/dL (1.8-2.4)
[2022-11-04 18:40] LABS: PHOSPHOROUS 2.4 mg/dL (2.5-4.9)
[2022-11-04 18:41] LABS: CREATININE 0.9 mg/dL (0.55-1.3)
[2022-11-04 18:42] LABS: BILIRUBIN,TOTAL 0.2 mg/dL (0.2-1)
[2022-11-04] MEDS ORDERED: MAGNESIUM 2GM/50ML STERILE WATER IVPB IVPB ONE ×2 (20:08→22:30)
[2022-11-04] MEDS ORDERED: POTASSIUM PHOSPHATE 30 MM in SODIUM CHLORIDE 500 ML IVPB ONE (20:08)
[2022-11-05] MEDS: oxyCODONE HCL 5 MG TABLET PO PRN ×4 (00:26→21:57)
[2022-11-05] MEDS: MELATONIN 5 MG TABLETS PO PRN ×2 (00:27→21:57)
[2022-11-05] MEDS: PIPERACILLIN/TAZOB 3.375 GM 3.375 GM in DEXTROSE 5%-WATER - 50 ML IVPB SCH ×3 (02:31→18:18)
[2022-11-05 08:06] LABS: ALBUMIN 2.6 g/dl (3.4-5.0); BLOOD UREA NITROGEN 16.6 mg/dL (7-18); CALCIUM 8.5 mg/dL (8.5-10.1); MAGNESIUM 1.8 mg/dL (1.8-2.4)
[2022-11-05 08:08] LABS: BASO % 1.1 % (0-2.0); EOS % 3.1 % (0-4.5); HEMATOCRIT 34.6 % (35.4-49); HEMOGLOBIN 11.6 GM/dL (11.7-16.9); LYMPH % 19.4 % (8-40); MCH 29.1 pg (25.7-33.7); MCHC 33.6 g/dl (32.0-35.9); MEAN CELL VOLUME 86.7 fl (80-96); MEAN PLT VOLUME 8.1 fl (7.5-11.1); MONO % 5.2 % (3.8-10.2); NEUT % 71.2 % (42.8-82.8); PLATELET COUNT 383 10^3/uL (134-434); RBC 3.99 M/mm3 (4.00-5.60); RDW 16.5 % (11.9-15.9); WHITE BLOOD COUNT 7.1 K/mm3 (4.0-10.0)
[2022-11-05 08:09] LABS: CREATININE 0.9 mg/dL (0.55-1.3); PHOSPHOROUS 4.3 mg/dL (2.5-4.9)
[2022-11-05 08:10] LABS: BILIRUBIN,TOTAL 0.5 mg/dL (0.2-1); TOT PROT 5.9 g/dl (6.4-8.2)
[2022-11-05] MEDS: ACETAMINOPHEN 325 MG TABLET (FP) PO PRN ×3 (09:00→21:58)
[2022-11-05] MEDS: CYANOCOBALAMIN 1,000 MCG TABLET (FP) PO SCH (09:43)
[2022-11-05] MEDS: FOLIC ACID 1 MG TABLET (FP) PO SCH (09:44)
[2022-11-05] MEDS: THIAMINE HCL 100 MG TABLET (FP) PO SCH (09:44)
[2022-11-05] MEDS: cloNIDine HCL 0.1 MG TABLET PO SCH ×2 (09:44→21:57)
[2022-11-05] MEDS: PANTOPRAZOLE SODIUM 40 MG VIAL IVPUSH SCH (09:53)
[2022-11-05] MEDS: NICOTINE 14 MG/24 HOURS TOPICAL PATCH TD SCH (09:53)
[2022-11-05] MEDS: LOSARTAN POTASSIUM 50 MG TABLET PO SCH ×2 (10:00→12:04)
[2022-11-06] MEDS: PIPERACILLIN/TAZOB 3.375 GM 3.375 GM in DEXTROSE 5%-WATER - 50 ML IVPB SCH ×2 (02:08→10:19)
[2022-11-06] MEDS ORDERED: IBUPROFEN 600 MG TABLET (FP) PO PRN ×2 (07:57→16:25)
[2022-11-06] MEDS ORDERED: ACETAMINOPHEN 500 MG TABLET (FP) PO PRN (07:57)
[2022-11-06 08:04] LABS: ALBUMIN 2.8 g/dl (3.4-5.0); CALCIUM 8.6 mg/dL (8.5-10.1)
[2022-11-06 08:05] LABS: BLOOD UREA NITROGEN 16.3 mg/dL (7-18); MAGNESIUM 1.6 mg/dL (1.8-2.4)
[2022-11-06 08:07] LABS: CREATININE 0.9 mg/dL (0.55-1.3)
[2022-11-06 08:08] LABS: TOT PROT 6.4 g/dl (6.4-8.2)
[2022-11-06 08:09] LABS: BILIRUBIN,TOTAL 0.2 mg/dL (0.2-1)
[2022-11-06 08:15] LABS: BASO % 0.8 % (0-2.0); EOS % 4.7 % (0-4.5); HEMATOCRIT 33.7 % (35.4-49); HEMOGLOBIN 11.4 GM/dL (11.7-16.9); LYMPH % 23.3 % (8-40); MCH 29.4 pg (25.7-33.7); MCHC 33.7 g/dl (32.0-35.9); MEAN CELL VOLUME 87.2 fl (80-96); MEAN PLT VOLUME 8.2 fl (7.5-11.1); MONO % 5.2 % (3.8-10.2); PLATELET COUNT 398 10^3/uL (134-434); RBC 3.87 M/mm3 (4.00-5.60); RDW 16.5 % (11.9-15.9); WHITE BLOOD COUNT 7.7 K/mm3 (4.0-10.0)
[2022-11-06] MEDS: LOSARTAN POTASSIUM 50 MG TABLET PO SCH (10:16)
[2022-11-06] MEDS: cloNIDine HCL 0.1 MG TABLET PO SCH ×2 (10:16→21:50)
[2022-11-06] MEDS: THIAMINE HCL 100 MG TABLET (FP) PO SCH (10:16)
[2022-11-06] MEDS: PANTOPRAZOLE 40 MG TABLET PO SCH (10:18)
[2022-11-06] MEDS: CYANOCOBALAMIN 1,000 MCG TABLET (FP) PO SCH (10:18)
[2022-11-06] MEDS: FOLIC ACID 1 MG TABLET (FP) PO SCH (10:19)
[2022-11-06] MEDS: LACTOBACILLUS ACIDOPHILUS 1 TABLET PO SCH (10:19)
[2022-11-06] MEDS: NICOTINE 14 MG/24 HOURS TOPICAL PATCH TD SCH (10:19)
[2022-11-06] MEDS ORDERED: MAGNESIUM SULF 50% (8.12 MEQ/2 ML-1 GM VIAL) IVPB ONE (13:48)
[2022-11-06] MEDS ORDERED: SODIUM PHOSPHATE - 0 MM in SODIUM CHLORIDE 250 ML IVPB ONE (13:50)
[2022-11-06] MEDS ORDERED: SODIUM PHOSPHATE - 30 MM in SODIUM CHLORIDE 250 ML IVPB ONE (15:16)
[2022-11-06] MEDS: traMADol HCL 50 MG TABLET PO PRN (16:46)
[2022-11-06] MEDS: MELATONIN 5 MG TABLETS PO PRN (21:51)
[2022-11-07] MEDS: traMADol HCL 50 MG TABLET PO PRN ×3 (05:10→22:07)
[2022-11-07 08:18] LABS: BASO % 0.8 % (0-2.0); EOS % 3.6 % (0-4.5); HEMATOCRIT 34.2 % (35.4-49); HEMOGLOBIN 11.7 GM/dL (11.7-16.9); LYMPH % 23.9 % (8-40); MCH 29.6 pg (25.7-33.7); MCHC 34.1 g/dl (32.0-35.9); MEAN CELL VOLUME 86.7 fl (80-96); MEAN PLT VOLUME 8.2 fl (7.5-11.1); MONO % 5.8 % (3.8-10.2); NEUT % 65.9 % (42.8-82.8); PLATELET COUNT 423 10^3/uL (134-434); RBC 3.94 M/mm3 (4.00-5.60); WHITE BLOOD COUNT 7.9 K/mm3 (4.0-10.0)
[2022-11-07 08:32] LABS: ALBUMIN 2.9 g/dl (3.4-5.0); MAGNESIUM 1.8 mg/dL (1.8-2.4)
[2022-11-07 08:35] LABS: PHOSPHOROUS 3.8 mg/dL (2.5-4.9)
[2022-11-07 08:36] LABS: BILIRUBIN,TOTAL 0.2 mg/dL (0.2-1); TOT PROT 6.7 g/dl (6.4-8.2)
[2022-11-07 08:55] LABS: BLOOD UREA NITROGEN 21.4 mg/dL (7-18)
[2022-11-07] MEDS: CYANOCOBALAMIN 1,000 MCG TABLET (FP) PO SCH (09:33)
[2022-11-07] MEDS: THIAMINE HCL 100 MG TABLET (FP) PO SCH (09:33)
[2022-11-07] MEDS: GABAPENTIN 100 MG CAPSULE PO SCH ×3 (09:33→22:07)
[2022-11-07] MEDS: PANTOPRAZOLE 40 MG TABLET PO SCH (09:33)
[2022-11-07] MEDS: LOSARTAN POTASSIUM 50 MG TABLET PO SCH (09:33)
[2022-11-07] MEDS: FOLIC ACID 1 MG TABLET (FP) PO SCH (09:33)
[2022-11-07] MEDS: LACTOBACILLUS ACIDOPHILUS 1 TABLET PO SCH (09:33)
[2022-11-07] MEDS: cloNIDine HCL 0.1 MG TABLET PO SCH (09:34)
[2022-11-07] MEDS: NICOTINE 14 MG/24 HOURS TOPICAL PATCH TD SCH (09:34)
[2022-11-07] MEDS ORDERED: MELATONIN 5 MG TABLETS PO PRN (14:59)
[2022-11-07] MEDS ORDERED: cloNIDine HCL 0.1 MG TABLET PO SCH (22:00)
[2022-11-08] MEDS: GABAPENTIN 100 MG CAPSULE PO SCH ×3 (06:19→21:53)
[2022-11-08] MEDS: cloNIDine HCL 0.1 MG TABLET PO SCH ×2 (08:45→21:53)
[2022-11-08] MEDS ORDERED: PROPOFOL 20 ML ONE (08:54)
[2022-11-08] MEDS ORDERED: MIDAZOLAM HCL 2 MG/2 ML SINGLE DOSE VIAL ONE ×2 (08:54→08:59)
[2022-11-08] MEDS ORDERED: BUPIVACAINE HCL/PF 0.5% (5MG/ML) 10 ML VIAL NR ONE (09:03)
[2022-11-08] MEDS ORDERED: LIDOCAINE HCL 1%, 10 MG/ML (20ML VIAL) NR ONE (09:03)
[2022-11-08 09:19] LABS: INR 0.91 (0.83-1.09); PROTHROMBIN TIME (PATIENT) 10.6 SEC (9.7-13.0)
[2022-11-08 09:34] LABS: CALCIUM 9.4 mg/dL (8.5-10.1)
[2022-11-08 09:35] LABS: MAGNESIUM 1.8 mg/dL (1.8-2.4)
[2022-11-08] MEDS ORDERED: ONDANSETRON 4 MG/2 ML VIAL IVPUSH PRN (09:35)
[2022-11-08] MEDS ORDERED: KETOROLAC TROMETHAMINE 30 MG/1 ML VIAL IVPUSH ONE ×2 (09:36→10:18)
[2022-11-08 09:37] LABS: ALBUMIN 3.3 g/dl (3.4-5.0); BLOOD UREA NITROGEN 22.9 mg/dL (7-18)
[2022-11-08 09:38] LABS: TOT PROT 7.3 g/dl (6.4-8.2)
[2022-11-08 09:39] LABS: PHOSPHOROUS 4.4 mg/dL (2.5-4.9)
[2022-11-08 09:41] LABS: BILIRUBIN,TOTAL 0.4 mg/dL (0.2-1)
[2022-11-08 09:52] LABS: BASO % 0.9 % (0-2.0); EOS % 2.9 % (0-4.5); HEMATOCRIT 38.1 % (35.4-49); HEMOGLOBIN 12.8 GM/dL (11.7-16.9); LYMPH % 22.1 % (8-40); MCH 29.3 pg (25.7-33.7); MCHC 33.5 g/dl (32.0-35.9); MEAN CELL VOLUME 87.3 fl (80-96); MEAN PLT VOLUME 8.2 fl (7.5-11.1); MONO % 6.4 % (3.8-10.2); NEUT % 67.7 % (42.8-82.8); PLATELET COUNT 469 10^3/uL (134-434); RBC 4.36 M/mm3 (4.00-5.60); RDW 16.8 % (11.9-15.9); WHITE BLOOD COUNT 7.9 K/mm3 (4.0-10.0)
[2022-11-08] MEDS ORDERED: THIAMINE HCL 100 MG TABLET (FP) PO SCH (10:00)
[2022-11-08] MEDS ORDERED: NICOTINE 14 MG/24 HOURS TOPICAL PATCH TD SCH (10:00)
[2022-11-08] MEDS ORDERED: CYANOCOBALAMIN 1,000 MCG TABLET (FP) PO SCH (10:00)
[2022-11-08] MEDS ORDERED: FOLIC ACID 1 MG TABLET (FP) PO SCH (10:00)
[2022-11-08] MEDS: FOLIC ACID 1 MG TABLET (FP) PO SCH (13:08)
[2022-11-08] MEDS: NICOTINE 14 MG/24 HOURS TOPICAL PATCH TD SCH (13:09)
[2022-11-08] MEDS: THIAMINE HCL 100 MG TABLET (FP) PO SCH (13:12)
[2022-11-08] MEDS: PANTOPRAZOLE 40 MG TABLET PO SCH (13:12)
[2022-11-08] MEDS: CYANOCOBALAMIN 1,000 MCG TABLET (FP) PO SCH (13:13)
[2022-11-08] MEDS: LACTOBACILLUS ACIDOPHILUS 1 TABLET PO SCH (13:13)
[2022-11-08] MEDS: PIPERACILLIN/TAZOB 3.375 GM 3.375 GM in DEXTROSE 5%-WATER - 50 ML IVPB SCH ×2 (13:14→18:59)
[2022-11-08] MEDS: LOSARTAN POTASSIUM 50 MG TABLET PO SCH (13:59)
[2022-11-08] MEDS: SODIUM CHLORIDE 1,000 ML IV SCH (16:32)
[2022-11-08] MEDS: IBUPROFEN 600 MG TABLET (FP) PO PRN (17:06)
[2022-11-08] MEDS: ACETAMINOPHEN 500 MG TABLET (FP) PO PRN (19:52)
[2022-11-08] MEDS: MELATONIN 5 MG TABLETS PO PRN (21:53)
[2022-11-09] MEDS: IBUPROFEN 600 MG TABLET (FP) PO PRN ×2 (02:02→20:33)
[2022-11-09] MEDS: ACETAMINOPHEN 500 MG TABLET (FP) PO PRN (02:04)
[2022-11-09] MEDS: PIPERACILLIN/TAZOB 3.375 GM 3.375 GM in DEXTROSE 5%-WATER - 50 ML IVPB SCH ×3 (02:05→17:43)
[2022-11-09] MEDS: GABAPENTIN 100 MG CAPSULE PO SCH ×3 (06:39→22:47)
[2022-11-09] MEDS: traMADol HCL 50 MG TABLET PO PRN ×3 (09:12→22:47)
[2022-11-09] MEDS: LACTOBACILLUS ACIDOPHILUS 1 TABLET PO SCH (09:13)
[2022-11-09] MEDS: LOSARTAN POTASSIUM 50 MG TABLET PO SCH (09:13)
[2022-11-09] MEDS: CYANOCOBALAMIN 1,000 MCG TABLET (FP) PO SCH (09:13)
[2022-11-09] MEDS: cloNIDine HCL 0.1 MG TABLET PO SCH ×2 (09:13→22:47)
[2022-11-09] MEDS: THIAMINE HCL 100 MG TABLET (FP) PO SCH (09:14)
[2022-11-09] MEDS: FOLIC ACID 1 MG TABLET (FP) PO SCH (09:14)
[2022-11-09] MEDS: PANTOPRAZOLE 40 MG TABLET PO SCH (09:14)
[2022-11-09] MEDS: NICOTINE 14 MG/24 HOURS TOPICAL PATCH TD SCH (09:14)
[2022-11-09 10:17] LABS: BASO % 1.1 % (0-2.0); EOS % 3.7 % (0-4.5); HEMATOCRIT 36.4 % (35.4-49); HEMOGLOBIN 12.1 GM/dL (11.7-16.9); LYMPH % 23.6 % (8-40); MCH 28.7 pg (25.7-33.7); MCHC 33.1 g/dl (32.0-35.9); MEAN CELL VOLUME 86.7 fl (80-96); MEAN PLT VOLUME 8.2 fl (7.5-11.1); MONO % 6.5 % (3.8-10.2); NEUT % 65.1 % (42.8-82.8); PLATELET COUNT 471 10^3/uL (134-434); RDW 17.1 % (11.9-15.9)
[2022-11-09 10:50] LABS: CALCIUM 8.8 mg/dL (8.5-10.1)
[2022-11-09 10:51] LABS: BLOOD UREA NITROGEN 28.6 mg/dL (7-18); MAGNESIUM 1.8 mg/dL (1.8-2.4)
[2022-11-09 10:53] LABS: CREATININE 1.1 mg/dL (0.55-1.3); PHOSPHOROUS 4.2 mg/dL (2.5-4.9)
[2022-11-09 10:55] LABS: BILIRUBIN,TOTAL 0.4 mg/dL (0.2-1); TOT PROT 6.9 g/dl (6.4-8.2)
[2022-11-09] MEDS: SODIUM CHLORIDE 1,000 ML IV SCH ×2 (17:25→17:42)
[2022-11-09] MEDS: MELATONIN 5 MG TABLETS PO PRN (22:47)
[2022-11-10] MEDS: CEFTRIAXONE 2 GM in DEXTROSE 5%-WATER 100 ML IVPB SCH ×2 (00:27→09:55)
[2022-11-10] MEDS: GABAPENTIN 100 MG CAPSULE PO SCH ×3 (07:05→21:21)
[2022-11-10] MEDS: LOSARTAN POTASSIUM 50 MG TABLET PO SCH (09:54)
[2022-11-10] MEDS: cloNIDine HCL 0.1 MG TABLET PO SCH ×2 (09:54→21:20)
[2022-11-10] MEDS: LACTOBACILLUS ACIDOPHILUS 1 TABLET PO SCH (09:54)
[2022-11-10] MEDS: PANTOPRAZOLE 40 MG TABLET PO SCH (09:54)
[2022-11-10] MEDS: traMADol HCL 50 MG TABLET PO PRN ×2 (09:54→15:40)
[2022-11-10] MEDS: CYANOCOBALAMIN 1,000 MCG TABLET (FP) PO SCH (09:54)
[2022-11-10] MEDS: FOLIC ACID 1 MG TABLET (FP) PO SCH (09:55)
[2022-11-10] MEDS: NICOTINE 14 MG/24 HOURS TOPICAL PATCH TD SCH (09:55)
[2022-11-10] MEDS: THIAMINE HCL 100 MG TABLET (FP) PO SCH (09:55)
[2022-11-10] MEDS: ACETAMINOPHEN 500 MG TABLET (FP) PO PRN (21:20)
[2022-11-10] MEDS: MELATONIN 5 MG TABLETS PO PRN (21:21)
[2022-11-11] MEDS: traMADol HCL 50 MG TABLET PO PRN ×3 (02:22→22:33)
[2022-11-11] MEDS: GABAPENTIN 100 MG CAPSULE PO SCH ×3 (06:10→22:28)
[2022-11-11] MEDS: CYANOCOBALAMIN 1,000 MCG TABLET (FP) PO SCH (09:56)
[2022-11-11] MEDS: NICOTINE 14 MG/24 HOURS TOPICAL PATCH TD SCH (09:56)
[2022-11-11] MEDS: LOSARTAN POTASSIUM 50 MG TABLET PO SCH (09:56)
[2022-11-11] MEDS: CEFTRIAXONE 2 GM in DEXTROSE 5%-WATER 100 ML IVPB SCH (09:56)
[2022-11-11] MEDS: PANTOPRAZOLE 40 MG TABLET PO SCH (09:56)
[2022-11-11] MEDS: cloNIDine HCL 0.1 MG TABLET PO SCH ×2 (09:56→22:28)
[2022-11-11] MEDS: LACTOBACILLUS ACIDOPHILUS 1 TABLET PO SCH (09:56)
[2022-11-11] MEDS: FOLIC ACID 1 MG TABLET (FP) PO SCH (09:56)
[2022-11-11] MEDS: THIAMINE HCL 100 MG TABLET (FP) PO SCH (09:56)
[2022-11-11] MEDS: COLLAGENASE CLOSTRIDIUM HIST. 30 GRAMS TUBE TP SCH (14:00)
[2022-11-12] MEDS: GABAPENTIN 100 MG CAPSULE PO SCH ×3 (07:07→21:06)
[2022-11-12 09:08] LABS: BASO % 1.1 % (0-2.0); EOS % 3.9 % (0-4.5); HEMATOCRIT 36.7 % (35.4-49); HEMOGLOBIN 12.6 GM/dL (11.7-16.9); LYMPH % 23.2 % (8-40); MCH 29.8 pg (25.7-33.7); MCHC 34.3 g/dl (32.0-35.9); MEAN CELL VOLUME 86.9 fl (80-96); MEAN PLT VOLUME 7.8 fl (7.5-11.1); NEUT % 64.8 % (42.8-82.8); PLATELET COUNT 441 10^3/uL (134-434); RBC 4.23 M/mm3 (4.00-5.60); RDW 16.5 % (11.9-15.9); WHITE BLOOD COUNT 8.2 K/mm3 (4.0-10.0)
[2022-11-12 09:22] LABS: CALCIUM 9.6 mg/dL (8.5-10.1)
[2022-11-12 09:23] LABS: ALBUMIN 3.3 g/dl (3.4-5.0); BLOOD UREA NITROGEN 19.3 mg/dL (7-18); MAGNESIUM 1.7 mg/dL (1.8-2.4)
[2022-11-12 09:26] LABS: CREATININE 1.1 mg/dL (0.55-1.3); PHOSPHOROUS 4.6 mg/dL (2.5-4.9)
[2022-11-12 09:27] LABS: BILIRUBIN,TOTAL 0.3 mg/dL (0.2-1)
[2022-11-12 09:29] LABS: TOT PROT 7.5 g/dl (6.4-8.2)
[2022-11-12] MEDS: THIAMINE HCL 100 MG TABLET (FP) PO SCH (10:47)
[2022-11-12] MEDS: CYANOCOBALAMIN 1,000 MCG TABLET (FP) PO SCH (10:47)
[2022-11-12] MEDS: traMADol HCL 50 MG TABLET PO PRN ×2 (10:47→16:39)
[2022-11-12] MEDS: LOSARTAN POTASSIUM 50 MG TABLET PO SCH (10:48)
[2022-11-12] MEDS: PANTOPRAZOLE 40 MG TABLET PO SCH (10:48)
[2022-11-12] MEDS: CEFTRIAXONE 2 GM in DEXTROSE 5%-WATER 100 ML IVPB SCH (10:48)
[2022-11-12] MEDS: FOLIC ACID 1 MG TABLET (FP) PO SCH (10:48)
[2022-11-12] MEDS: NICOTINE 14 MG/24 HOURS TOPICAL PATCH TD SCH (10:48)
[2022-11-12] MEDS: COLLAGENASE CLOSTRIDIUM HIST. 30 GRAMS TUBE TP SCH (10:49)
[2022-11-12] MEDS: LACTOBACILLUS ACIDOPHILUS 1 TABLET PO SCH (10:49)
[2022-11-12] MEDS: cloNIDine HCL 0.1 MG TABLET PO SCH ×2 (10:49→21:06)
[2022-11-12] MEDS ORDERED: MAGNESIUM 2GM/50ML STERILE WATER IVPB IVPB ONE (11:00)
[2022-11-12] MEDS: IBUPROFEN 600 MG TABLET (FP) PO PRN (21:11)
[2022-11-13] MEDS: traMADol HCL 50 MG TABLET PO PRN (00:27)
[2022-11-13] MEDS: GABAPENTIN 100 MG CAPSULE PO SCH ×2 (06:08→14:48)
[2022-11-13 08:44] LABS: BASO % 1.2 % (0-2.0); EOS % 3.9 % (0-4.5); HEMATOCRIT 36.4 % (35.4-49); HEMOGLOBIN 12.2 GM/dL (11.7-16.9); LYMPH % 24.9 % (8-40); MCH 29.1 pg (25.7-33.7); MCHC 33.5 g/dl (32.0-35.9); MEAN CELL VOLUME 86.7 fl (80-96); MEAN PLT VOLUME 7.8 fl (7.5-11.1); PLATELET COUNT 447 10^3/uL (134-434); WHITE BLOOD COUNT 7.8 K/mm3 (4.0-10.0)
[2022-11-13 09:06] LABS: ALBUMIN 3.2 g/dl (3.4-5.0); CALCIUM 9.2 mg/dL (8.5-10.1); MAGNESIUM 1.8 mg/dL (1.8-2.4)
[2022-11-13 09:09] LABS: CREATININE 1.1 mg/dL (0.55-1.3); PHOSPHOROUS 4.9 mg/dL (2.5-4.9)
[2022-11-13 09:10] LABS: BILIRUBIN,TOTAL 0.2 mg/dL (0.2-1); TOT PROT 7.2 g/dl (6.4-8.2)
[2022-11-13] MEDS: PANTOPRAZOLE 40 MG TABLET PO SCH (10:59)
[2022-11-13] MEDS: LACTOBACILLUS ACIDOPHILUS 1 TABLET PO SCH (10:59)
[2022-11-13] MEDS: CYANOCOBALAMIN 1,000 MCG TABLET (FP) PO SCH (10:59)
[2022-11-13] MEDS: FOLIC ACID 1 MG TABLET (FP) PO SCH (10:59)
[2022-11-13] MEDS: cloNIDine HCL 0.1 MG TABLET PO SCH (10:59)
[2022-11-13] MEDS: LOSARTAN POTASSIUM 50 MG TABLET PO SCH (10:59)
[2022-11-13] MEDS: CEFTRIAXONE 2 GM in DEXTROSE 5%-WATER 100 ML IVPB SCH (10:59)
[2022-11-13] MEDS: THIAMINE HCL 100 MG TABLET (FP) PO SCH (10:59)
[2022-11-13] MEDS: NICOTINE 14 MG/24 HOURS TOPICAL PATCH TD SCH (11:00)
[2022-11-13] MEDS ORDERED: traMADol HCL 50 MG TABLET PO ONE (11:28)
[2022-11-13] MEDS: COLLAGENASE CLOSTRIDIUM HIST. 30 GRAMS TUBE TP SCH (14:45)
[2022-11-13 15:55] VITALS: BP 104/66; PULSE 90; RESP 20; TEMP 97.8
== END 2022-11-13 18:55 | disposition home or self-care (01) | DRG 344 ==
LOC: JER 14:44 → JERBED 17:16 → J7W 23:37 → J4W 10-31 11:12 → J8W 11-07 13:10 → J4W 11-07 13:14 → J8W 11-07 13:53
PROVIDERS: ADMIT Internal Medicine
PROC: HZ2ZZZZ Detoxification Services for Substance Abuse Treatment (ICD-10-PCS; 2022-10-30)
PROC: 07DT0ZX Extraction of Bone Marrow, Open Approach, Diagnostic (ICD-10-PCS; principal; 2022-11-08 09:30)
DX: M86.8X7 Other osteomyelitis, ankle and foot (principal); G92.8 Other toxic encephalopathy; R78.81 Bacteremia; L03.116 Cellulitis of left lower limb; I10 Essential (primary) hypertension; F11.23 Opioid dependence with withdrawal; F17.210 Nicotine dependence, cigarettes, uncomplicated; Z59.00 Homelessness unspecified; L03.115 Cellulitis of right lower limb; E78.5 Hyperlipidemia, unspecified; N39.0 Urinary tract infection, site not specified; B95.61 Methicillin susceptible Staphylococcus aureus infection as the cause of diseases classified elsewhere; D64.9 Anemia, unspecified; F10.239 Alcohol dependence with withdrawal, unspecified; G47.00 Insomnia, unspecified; L03.032 Cellulitis of left toe; L97.529 Non-pressure chronic ulcer of other part of left foot with unspecified severity; M79.672 Pain in left foot; R00.0 Tachycardia, unspecified; R19.7 Diarrhea, unspecified; B35.1 Tinea unguium
CPT/HCPCS: 36415; 36600; 70450-TC; 71045-TC-FY; 73630-TC-LT; 73718-TC-LT; 80048; 80053; 80061; 80307; 81003; 82140; 82803; 82962; 83036; 83540; 83550; 83735; 84100; 84439; 84443; 84484; 85025; 85045; 85610; 85651; 85730; 86140; 86850; 86900; 86901; 87040; 87070; 87075; 87186; 87205; 87389; 88307-TC; 88311-TC; 93005; 93010; 93971-TC; 94760; 97116-GP; 97162-GP; 99285-25; C9803-CS; U0003; U0005